=== PATIENT | male | born 1965 | race Caucasian/White ===

== ENCOUNTER → 2016-06-18 | Outpatient (CLI) | payer MEDICARE, MEDICAID ==
[~2016-06-18] MED LIST: ATARAX OR; FOLI1TAB OR; MELO7.5S PO; MELO7.5T6 PO; MELOPOW PO; METH2.5T OR; NORTRIPTYLINE HCL OR; PRED5TAB OR; SULF50TA OR; ULTR200T OR; VICO5TAB OR
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
== END ==
LOC: M PAIN 14:00
PROVIDERS: ATTEND Nurse Practitioner Family
DX: M12.9 Arthropathy, unspecified (principal); Z79.891 Long term (current) use of opiate analgesic; Z79.899 Other long term (current) drug therapy; Z91.018 Allergy to other foods; Z91.040 Latex allergy status; Z88.0 Allergy status to penicillin

== ENCOUNTER → 2016-09-17 | Outpatient (CLI) | payer MEDICARE, MEDICAID ==
--- NOTE | 2016-09-19 01:28 | ECWPNPC ---
PATIENT NAME: CRISTAL HAZEL : 1965 GENDER: MALE VISIT DATE: 09/17/2016 DISCHARGE DATE: 09/17/16 1515 VISIT LOCKED DATE TIME: PHYSICIAN: FRANCISCO J KLINE RESOURCE: FRANCISCO J KLINE REASON FOR APPOINTMENT 1. FOLLOWUP-ARTHRITIS HISTORY OF PRESENT ILLNESS HISTORY OF PRESENT ILLNESS: HERE FOR F/U AND MANAGEMENT OF CHRONIC GENERALIZED JOINT PAIN W HX OF RHEUMATOID ARTHRITIS.PAIN MEDICATION HELPFUL AT REDUCING PAIN AND KEEPING HIM COMFORTABLE.RATING PAIN VAS 6/10.PAIN AGGREVATED BY COLD AND RAIN.USING HYDROCODONE 10/325 Q 4-6 H PRN PAIN WHICH IS HELPFUL.DENIES SIDE EFFECTS WITH MEDICATION. PAIN THE PATIENT DESCRIBES THE PAIN... THE PATIENT DESCRIBES THE PAIN... THE PATIENT DESCRIBES THE PAIN... THE PATIENT DESCRIBES THE PAIN... FALL RISK SCREENING: SCREENING :NO FALLS IN THE PAST YEAR CURRENT MEDICATIONS TAKING FOLIC ACID 1 MG TABLET 1 TABLET P.O. ONCE A DAY (DR. CONTI) TAKING METHOTREXATE 2.5 MG TABLET 9 TABLETS ORALLY EVERY SATURDAY MORNING (DR. CONTI) TAKING PREDNISONE 5 MG TABLET 1 TABLET WITH FOOD OR MILK P.O. ONCE A DAY (DR. CONTI) TAKING MELOXICAM 7.5 MG TABLET 1 TABLET ORALLY ONCE A DAY TAKING HYDROXYCHLOROQUINE SULFATE 200 MG TABLET 1 TABLET WITH FOOD OR MILK ORALLY TWICE DAILY TAKING TOPAMAX 50 MG TABLET 1 TABLET ORALLY ONCE DAILY TAKING CLARITIN 10 MG TABLET 1 TABLET ORALLY ONCE A DAY TAKING OMEPRAZOLE 40 MG CAPSULE DELAYED RELEASE 1 CAPSULE ORALLY ONCE A DAY TAKING HYDROCODONE-ACETAMINOPHEN 10-325 MG TABLET 1 ORALLY Q4H PRN PAIN MDD5 MEDICATION LIST REVIEWED AND RECONCILED WITH THE PATIENT PAST MEDICAL HISTORY RHEUMATOID ARTHRITIS - FOLLOWED BY [facility] RHEUMATOLOGY CHRONIC HAND AND WRIST PAIN - FOLLOWED BY [facility] PAIN [facility] GERD ALLERGIES FRUIT: SOB: ALLERGY LATEX GLOVES: HIVES: ALLERGY PENICILLIN (FOR ALLERGIES USE ONLY): HIVES: ALLERGY SOCIAL HISTORY GENERAL: PAIN CLINIC PFS, CLERGY, PUBLIC HEALTH REFERRALS CLERGY REFERRAL NEEDED?NO WAS THE PROVIDER NOTIFIED OF ANY PERTINENT INFO?NO PFS REFERRAL NEEDED?NO PUBLIC HEALTH REFERRAL NEEDED?NO PATIENT: ____. REVIEW OF SYSTEMS CONSTITUTIONAL: ANY CHANGE IN YOUR MEDICAL CONDITION? NO . CHILLS NO . FEVER NO . INFECTION: DO YOU HAVE NEW INFECTIONS? NO . DO YOU HAVE HISTORY OF MRSA? NO . MUSCULOSKELETAL: ANY NEW PATTERNS OF PAIN OR NUMBNESS? NO . GASTROENTEROLOGY: ANY NEW CHANGE IN BOWEL CONTROL? NO . GENITOURINARY: ANY NEW CHANGE IN BLADDER CONTROL? NO . IS THERE A CHANCE YOU COULD BE ? NO . HEMATOLOGY/LYMPH: DO YOU TAKE ANY BLOOD THINNERS? (FOR EXAMPLE- COUMADIN, PLAVIX, AGGRENOX, PLATEL, PRADAXA, OR XARELTO) NO . WHEN WAS YOUR LAST DOSE? DATE: TIME: . NEUROLOGY: HAVE YOU FALLEN IN THE PAST 6 MONTHS? NO . ANY NEW EXTREMITY NUMBNESS OR WEAKNESS? NO . CARDIOLOGY: DO YOU HAVE A PACEMAKER OR DEFIBRILLATOR? NO . RESPIRATORY: HAVE YOU BEEN SICK IN THE PAST WEEK? NO . FEVER NO . FLU LIKE SYMPTOMS? NO . COUGH NO . INTEGUMENTARY: DO YOU HAVE ANY RASHES OR OPEN SORES? NO . ALLERGIC/IMMUNO: ARE YOU ALLERGIC TO SHELLFISH OR IV DYE? NO . ANY NEW ALLERGIES? NO . PSYCHIATRIC: DO YOU HAVE THOUGHTS OF HURTING YOURSELF OR SOMEONE ELSE? NO . ARE YOU ABUSED, NEGLECTED, OR IN AN UNSAFE ENVIRONMENT? NO . ENDOCRINOLOGY: ARE YOU DIABETIC? NO . OTHER: DO YOU NEED ANY PRESCRIPTIONS? YES . IF YES, PLEASE LIST: ____ . ANY NEW PROBLEMS WITH YOUR MEDICATIONS? NO . WHEN DID YOU LAST EAT? ____ . WHEN DID YOU LAST DRINK? ____ . WHAT DID YOU LAST DRINK? ____ . NAME OF PERSON DRIVING YOU HOME? ____ . DO YOU HAVE ANY OTHER QUESTIONS OR CONCERNS NO . REVIEWED BY: PROVIDER: FRANCISCO J BILL . VITAL SIGNS WT 170.0 LBS, HT 5'6", BMI 27.44 INDEX, BP 141/74 MM HG, HR 62 /MIN, RR 18 /MIN, TEMP 96.8 F, OXYGEN SAT % 96, SAFE IN ENV? (Y/N) YES, NA INITIALS AW 1434, REVIEWED BY: KG. EXAMINATION GENERAL EXAMINATION: LUNGS:LUNG SOUNDS ARE CLEAR. HEART:HEART RATE REGULAR. MUSCULOSKELETAL:*, MUSCLE STRENGTH TESTING 5/5 BILATERAL, PALPATION: NEGATIVE FOR PAIN OVER L/S SPINE. NEGATIVE FOR PAIN OVER L/S PARSPINALS. ASSESSMENTS ARTHROPATHY - M12.9 (PRIMARY) CHRONIC PRESCRIPTION OPIATE USE - Z79.891 TREATMENT ARTHROPATHY REFILL HYDROCODONE-ACETAMINOPHEN TABLET, 10-325 MG, 1, ORALLY, Q4H PRN PAIN MDD5, 30 DAY(S), 150, REFILLS 0 NOTES: I[employer] REGISTRY REVIEWED AND DEMNOSTRATES COMPLLIANCE. BRINGS IN MEDICATIONS WHICH IS APPROPRIATE FOR WHAT WAS DISPENSED. RECENT URINE TOXICOLOGY REVIEWED. NO UNAUTHORIZED MEDICATIONS. NO ILLICIT SUBSTANCES AND PRESCRIBED MEDICATIONS WERE PRESENT. , RISKS AND BENEFITS OF NARCOTIC/OPIOD MEDICATIONS WERE REVIEWED WITH PATIENT - THIS INCLUDES BUT IS NOT LIMITED TO RISK OF DEPENDANCE/DEVELOPMENT OF ADDICTION, MOOD DISTURBANCE AND DEPRESSION, OSTEOPOROSIS, HORMONAL AND LABIDAL CHANGES, RESPIRATORY DEPRESSION AND . PATIENT IS ADVISED NOT TO DRIVE WHILE ON THESE MEDICATIONS.URINE TOX TODAY. PROCEDURE CODES G8783 BP SCR PRFRM RCMDD DEFIND SCR INTVL G8730 PAIN ASSESS POS TOOL F/U PLAN DOC 3016F PT SCRND UNHLTHY OH USE 1123F ACP DISCUSS/DSCN MKR DOCD 1036F TOBACCO NON-USER G8427 DOC MEDS VERIFIED W/PT OR RE G8420 BMI<30 AND >=22 CALC & DOCU 3288F FALL RISK ASSESSMENT DOCD DISPOSITION & COMMUNICATION FOLLOW UP 2 MONTHS ELECTRONICALLY SIGNED BY FLY WAN ON 09/17/2016 AT 03:21 PM EDT DISCLAIMER : THIS IS A VISIT SUMMARY EXTRACTED FROM THE [employer] CHART. IT IS NOT A COPY OF THE [employer] PROGRESS NOTE. MTDD
== END ==
LOC: M PAIN 14:20
PROVIDERS: ATTEND Nurse Practitioner Family
DX: Z09 Encounter for follow-up examination after completed treatment for conditions other than malignant neoplasm (principal); G89.29 Other chronic pain; M05.89 Other rheumatoid arthritis with rheumatoid factor of multiple sites; G43.009 Migraine without aura, not intractable, without status migrainosus; J30.89 Other allergic rhinitis; Z91.018 Allergy to other foods; Z91.040 Latex allergy status; Z88.0 Allergy status to penicillin; Z79.52 Long term (current) use of systemic steroids; Z79.891 Long term (current) use of opiate analgesic; Z79.899 Other long term (current) drug therapy

== ENCOUNTER → 2016-10-10 | Outpatient (CLI) | payer OTHER, MEDICAID | LOC: M LAB 12:38 | PROVIDERS: ATTEND Physician Assistant Medical | DX: G43.009 Migraine without aura, not intractable, without status migrainosus (principal); Z79.899 Other long term (current) drug therapy ==

== ENCOUNTER → 2016-11-19 | Outpatient (CLI) | payer MEDICAID, OTHER, MEDICARE ==
[~2016-11-19] MED LIST changes: -MELO7.5T6 PO; +MELO7.5T7 PO
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
== END ==
LOC: M PAIN 14:00
PROVIDERS: ATTEND Nurse Practitioner Family
DX: M12.9 Arthropathy, unspecified (principal); Z79.891 Long term (current) use of opiate analgesic; Z79.899 Other long term (current) drug therapy; Z91.018 Allergy to other foods; Z88.0 Allergy status to penicillin; Z91.040 Latex allergy status

== ENCOUNTER 2017-05-11 13:13 | Emergency (ER) | payer OTHER, MEDICAID ==
[~2017-05-11] VITALS: Ht 177.8 cm; Wt 70.5 kg
[2017-05-11 13:13] VITALS: BP 122/75
[2017-05-11] MEDS ORDERED: methylPREDNISolone INJ 125 MG/2 ML VIAL (J2930) IV ONE (15:30)
[2017-05-11] MEDS ORDERED: NS 500 ML IV ONE (15:30)
[2017-05-11] MEDS ORDERED: TRAM50TA2 PO (16:00)
[2017-05-11] MEDS ORDERED: CYCL10TA PO (16:00)
[2017-05-11] MEDS ORDERED: KETOROLAC 30 MG/ML VIAL (J1885) IV ONE (16:15)
== END 2017-05-11 16:06 | disposition home or self-care (01) ==
LOC: M ED 13:13
DX: S39.012A Strain of muscle, fascia and tendon of lower back, initial encounter (principal); X50.1XXA Overexertion from prolonged static or awkward postures, initial encounter; Y92.9 Unspecified place or not applicable; Y93.9 Activity, unspecified; Y99.9 Unspecified external cause status; M06.9 Rheumatoid arthritis, unspecified; Z87.891 Personal history of nicotine dependence; Z79.899 Other long term (current) drug therapy; Z88.0 Allergy status to penicillin; Z91.040 Latex allergy status

== ENCOUNTER → 2017-07-10 | Outpatient (CLI) | payer MEDICARE | LOC: M OUTALCOH 11:56 | DX: Z13.9 Encounter for screening, unspecified (principal); F10.20 Alcohol dependence, uncomplicated | CPT/HCPCS: H0001 ==

== ENCOUNTER 2017-07-22 14:01 | Outpatient (RCR) | payer MEDICARE | END 2017-07-31 | LOC: M OUTALCOH 14:01 | DX: F10.20 Alcohol dependence, uncomplicated (principal) | CPT/HCPCS: 90834 ==

== ENCOUNTER 2017-09-10 16:00 | Outpatient (RCR) | payer MEDICARE | END 2017-09-30 | LOC: M OUTALCOH 09-17 16:00 | DX: F10.20 Alcohol dependence, uncomplicated (principal) | CPT/HCPCS: 90834 ==

== ENCOUNTER 2017-10-03 16:00 | Outpatient (RCR) | payer MEDICARE | END 2017-10-31 | LOC: M OUTALCOH 10-10 16:00 | DX: F10.20 Alcohol dependence, uncomplicated (principal) | CPT/HCPCS: 90834 ==

== ENCOUNTER → 2018-08-26 | Outpatient (CLI) | payer OTHER, MEDICARE ==
[~2018-08-26] MED LIST changes: +CYCL10TA PO; +HYDR-3716 PO; +METH2.5T48 PO; +TOPI50TA9 PO; +TRAM50TA2 PO
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
== END ==
LOC: M PAIN 13:30
PROVIDERS: ATTEND Nurse Practitioner Family
DX: M05.89 Other rheumatoid arthritis with rheumatoid factor of multiple sites (principal); K21.9 Gastro-esophageal reflux disease without esophagitis; F41.9 Anxiety disorder, unspecified; F17.220 Nicotine dependence, chewing tobacco, uncomplicated; Z79.1 Long term (current) use of non-steroidal anti-inflammatories (NSAID); Z79.899 Other long term (current) drug therapy; Z88.8 Allergy status to other drugs, medicaments and biological substances; Z91.040 Latex allergy status; Z91.018 Allergy to other foods

== ENCOUNTER 2018-09-25 21:45 | Emergency (ER) | payer MEDICAID, MEDICARE, OTHER ==
[~2018-09-25] VITALS: Ht 175.3 cm; Wt 70.9 kg
[~2018-09-25 21:45] MED LIST changes: -HYDR-3716 PO; -METH2.5T48 PO; -TOPI50TA9 PO
[2018-09-25] MEDS ORDERED: NS 1,000 ML IV SCH (22:05)
[2018-09-25] MEDS ORDERED: METH2.5T48 PO (22:13)
[2018-09-25] MEDS ORDERED: TOPI50TA9 PO (22:13)
[2018-09-25] MEDS ORDERED: HYDR-3716 PO (22:13)
[2018-09-25 22:16] LABS: BASO # 0.1 10^3/uL (0.0-0.2); BASO % 0.6 % (0.0-1.0); EOS % 0.2 % (0.0-3.0); HEMATOCRIT 42.7 % (42.0-52.0); HEMOGLOBIN 14.4 g/dl (13.5-17.5); LYMPH # 1.3 10^3/uL (1.5-4.5); LYMPH % 14.1 % (24.0-44.0); MEAN CORPUSCULAR HEMOGLOBIN 32.8 pg (27.0-33.0); MEAN CORPUSCULAR HGB CONC 33.7 g/dl (32.0-36.5); MEAN CORPUSCULAR VOLUME 97.3 fl (80.0-96.0); MONO # 0.5 10^3/uL (0.0-0.8); MONO % 5.4 % (0.0-5.0); NEUTROPHILS # 7.2 10^3/uL (1.8-7.7); NEUTROPHILS % 79.4 % (36.0-66.0); PLATELET COUNT, AUTOMATED 238 10^3/uL (150-450); RED BLOOD COUNT 4.39 10^6/uL (4.30-6.10)
[2018-09-25 22:46] LABS: ACETAMINOPHEN LEVEL < 2.0 UG/ML (10.0-30.0); ALBUMIN 3.4 GM/DL (3.2-5.2); ALT/SGPT 14 U/L (12-78); BILIRUBIN,DIRECT < 0.1 MG/DL (0.0-0.2); BILIRUBIN,TOTAL 0.3 MG/DL (0.2-1.0); BLOOD UREA NITROGEN 9 MG/DL (7-18); CALCIUM LEVEL 7.5 MG/DL (8.5-10.1); CARBON DIOXIDE LEVEL 24 MEQ/L (21-32); CHLORIDE LEVEL 113 MEQ/L (98-107); CPK CREATINE PHOSPHOKINASE 101 U/L (39-308); CREATININE FOR GFR 0.98 MG/DL (0.70-1.30); ETHYL ALCOHOL (ETHANOL) 0.249 % (0.000-0.010); GLOMERULAR FILTRATION RATE > 60.0 (>56); GLUCOSE, FASTING 75 MG/DL (70-100); POTASSIUM SERUM 3.2 MEQ/L (3.5-5.1); SALICYLATE LEVEL < 1.7 MG/DL (5.0-30.0); SODIUM LEVEL 145 MEQ/L (136-145); TOTAL PROTEIN 6.1 GM/DL (6.4-8.2)
[2018-09-25 23:32] VITALS: BP 120/54
--- NOTE | 2018-09-26 09:01 | REP ---
CHEST, SINGLE VIEW: There is no evidence of acute infiltrate. No pleural effusion is seen. The heart is normal in size. The mediastinal silhouette is unremarkable. The visualized osseous structures are intact. IMPRESSION: No acute pulmonary disease. Electronically Signed by Sven Vaz MD 09/26/2018 12:43 P
--- NOTE | 2018-09-26 11:00 | REP ---
Head CT without contrast: History: Drug overdose. Repeat dictation. Preliminary report is provided at the time of examination by virtual radiology. Comparison study: August 20, 2013. CT findings: Bone window settings demonstrate an intact bony calvarium. There is no evidence of skull fracture or incidental bony calvarial lesion. The visualized paranasal sinuses appear clear. No intraorbital abnormality is seen. On soft tissue window setting images; the lateral, third, and fourth ventricles are normal in size and position. Vaz-white differentiation pattern is normal above and below the tentorium. There are is no evidence of intracranial hemorrhage. No mass, edema, infarction, or midline shift is seen. No extra-axial fluid collection is appreciated. Impression: Negative noncontrast head CT. Electronically Signed by Cirilo Jacob MD 09/26/2018 10:52 A
--- NOTE | 2018-09-26 19:46 | ECGEPIP ---
Stationary ECG Study [facility] - ED Test Date: 2018-09-25 Pat Name: CRISTAL HAZEL Department: Room: - Gender: M Administrative Assistant Receptionist: : 1965 Requested By: OPRSHA BILL Order Number: [id number] Reading MD: Princess Ramey Measurements Intervals [place] Rate: 65 P: 23 GA: 140 QRS: 52 QRSD: 97 T: 30 QT: 426 QTc: 443 Interpretive Statements SINUS RHYTHM DECREASED RATE 03/11/12 Electronically Signed On 09-26-2018 19:45:58 EDT by Princess Ramey
== END 2018-09-25 23:34 | disposition home or self-care (01) ==
LOC: M ED 21:45
DX: F11.129 Opioid abuse with intoxication, unspecified (principal); F10.120 Alcohol abuse with intoxication, uncomplicated; G40.509 Epileptic seizures related to external causes, not intractable, without status epilepticus; F17.200 Nicotine dependence, unspecified, uncomplicated; Z88.0 Allergy status to penicillin; Z91.040 Latex allergy status; Z79.899 Other long term (current) drug therapy; Z79.52 Long term (current) use of systemic steroids; Z79.891 Long term (current) use of opiate analgesic
CPT/HCPCS: 70450; 71045; 80048; 80076; 82550; 84443; 85025; 93005; 93041; 94760; 96360; 99285; G0480

== ENCOUNTER → 2018-12-29 | Outpatient (CLI) | payer MEDICAID, OTHER ==
[~2018-12-29] MED LIST changes: +HYDR-3716 PO; +METH2.5T48 PO; +TOPI50TA9 PO
[2018-12-29 13:18] LABS: APPEARANCE, URINE CLEAR (CLEAR); BACTERIA, URINE AUTO NEGATIVE (NEGATIVE); BILIRUBIN, URINE AUTO NEGATIVE (NEGATIVE); BLOOD, URINE BLOOD NEGATIVE (NEGATIVE); COLOR, URINE YELLOW (YELLOW); GLUCOSE, URINE (UA) AUTO NEGATIVE (NEGATIVE); KETONE, URINE AUTO NEGATIVE (NEGATIVE); LEUKOCYTE ESTERASE, URINE AUTO NEGATIVE (NEGATIVE); MUCUS, URINE SMALL (NEGATIVE); NITRITE, URINE AUTO NEGATIVE (NEGATIVE); PROTEIN, URINE AUTO NEGATIVE (NEGATIVE); RBC, URINE AUTO 2 /HPF (0-3); SPECIFIC GRAVITY URINE AUTO 1.016 (1.002-1.035); SQUAMOUS EPITHELIAL CELL UR AU 0 /HPF (0-6); UROBILINOGEN, URINE AUTO 0.2 mg/dL (0.0-2.0); WBC, URINE AUTO 1 /HPF (0-3)
[2018-12-29 13:20] LABS: BASO # 0.1 10^3/uL (0.0-0.2); EOS # 0.2 10^3/uL (0.0-0.50); EOS % 2.9 % (0.0-3.0); HEMATOCRIT 43.1 % (42.0-52.0); HEMOGLOBIN 14.5 g/dl (13.5-17.5); LYMPH # 1.8 10^3/uL (1.5-4.5); LYMPH % 26.5 % (24.0-44.0); MEAN CORPUSCULAR HEMOGLOBIN 33.2 pg (27.0-33.0); MEAN CORPUSCULAR HGB CONC 33.6 g/dl (32.0-36.5); MEAN CORPUSCULAR VOLUME 98.6 fl (80.0-96.0); MONO # 0.8 10^3/uL (0.0-0.8); MONO % 12.2 % (0.0-5.0); NEUTROPHILS # 3.9 10^3/uL (1.8-7.7); PLATELET COUNT, AUTOMATED 268 10^3/uL (150-450); RED BLOOD COUNT 4.37 10^6/uL (4.30-6.10); WHITE BLOOD COUNT 6.8 10^3/uL (4.0-10.0)
[2018-12-29 13:26] LABS: HEMOGLOBIN A1c 4.5 %
[2018-12-29 13:40] LABS: ALBUMIN 3.6 GM/DL (3.2-5.2); ALT/SGPT 19 U/L (12-78); BILIRUBIN,TOTAL 0.4 MG/DL (0.2-1.0); BLOOD UREA NITROGEN 10 MG/DL (7-18); CALCIUM LEVEL 9.1 MG/DL (8.5-10.1); CARBON DIOXIDE LEVEL 29 MEQ/L (21-32); CHLORIDE LEVEL 110 MEQ/L (98-107); CHOLESTEROL LEVEL 169 MG/DL (<200); CHOLESTEROL RISK RATIO 2.485 (<5); GLOMERULAR FILTRATION RATE > 60.0 (>56); GLUCOSE, FASTING 75 MG/DL (70-100); HDL CHOLESTEROL 68 MG/DL (>40); LDL CHOLESTEROL 84 MG/DL (<100); NON-HDL-C 101 MG/DL; POTASSIUM SERUM 3.8 MEQ/L (3.5-5.1); SODIUM LEVEL 145 MEQ/L (136-145); TOTAL PROTEIN 6.2 GM/DL (6.4-8.2); TRIGLYCERIDES LEVEL 85 MG/DL (<150)
[2018-12-29 13:41] LABS: TOTAL 25(OH) VITAMIN D 37.3 NG/ML (30.0-100.0)
== END ==
LOC: M LAB 12:19
PROVIDERS: ATTEND Physician Assistant
DX: M05.9 Rheumatoid arthritis with rheumatoid factor, unspecified (principal); Z00.00 Encounter for general adult medical examination without abnormal findings; Z79.899 Other long term (current) drug therapy

== ENCOUNTER 2019-01-20 00:21 | Emergency (ER) | payer OTHER ==
[2019-01-20 00:22] VITALS: BP 118/73
[2019-01-20] MEDS ORDERED: BENA25CA4 PO (01:23)
[2019-01-20] MEDS ORDERED: TRIA1OI80 TOP (01:23)
[2019-01-20] MEDS ORDERED: diphenhydrAMINE 50 MG CAP PO ONE (01:30)
== END 2019-01-20 01:32 | disposition home or self-care (01) ==
LOC: M ED 00:21
DX: L23.9 Allergic contact dermatitis, unspecified cause (principal); R56.9 Unspecified convulsions; Z87.891 Personal history of nicotine dependence; Z88.0 Allergy status to penicillin; Z91.018 Allergy to other foods; Z91.040 Latex allergy status; Z79.899 Other long term (current) drug therapy; Z79.52 Long term (current) use of systemic steroids

== ENCOUNTER 2019-04-13 02:25 | Emergency (ER) | payer OTHER ==
[~2019-04-13] VITALS: Ht 177.8 cm; Wt 72.4 kg
[~2019-04-13 02:25] MED LIST changes: +BENA25CA4 PO; +TRIA1OI80 TOP
[2019-04-13] MEDS ORDERED: MORPHINE 4 MG/ML 1ML VIAL/SYRINGE (J2270) IV ONE ×2 (02:45→03:45)
[2019-04-13] MEDS ORDERED: TETANUS/DIPHTHERIA TOX ADSORB ADULT 0.5ML SYR/VIAL (90714) IM ONE (02:45)
[2019-04-13] MEDS ORDERED: NS 1,000 ML IV ONE (02:45)
[2019-04-13] MEDS ORDERED: LIDOCAINE W/EPINEPHRINE 1% 20ML VIAL SC ONE (03:30)
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
[2019-04-13 04:15] VITALS: BP 109/94
== END 2019-04-13 04:34 | disposition home or self-care (01) ==
LOC: M ED 02:25
DX: S01.81XA Laceration without foreign body of other part of head, initial encounter (principal); S00.83XA Contusion of other part of head, initial encounter; Y04.8XXA Assault by other bodily force, initial encounter; Y92.410 Unspecified street and highway as the place of occurrence of the external cause; Y93.9 Activity, unspecified; Y99.9 Unspecified external cause status; M06.9 Rheumatoid arthritis, unspecified; Z79.899 Other long term (current) drug therapy; Z88.0 Allergy status to penicillin; Z91.040 Latex allergy status; Z91.018 Allergy to other foods
CPT/HCPCS: 12011; 70450; 70486; 96361; 96374; 96376; 99284; J2270

== ENCOUNTER → 2019-08-11 | Outpatient (REF) | payer OTHER ==
[2019-08-11 17:24] LABS: BASO # 0.1 10^3/uL (0.0-0.2); BASO % 1.1 % (0.0-1.0); EOS # 0.1 10^3/uL (0.0-0.5); EOS % 1.5 % (0.0-3.0); HEMATOCRIT 46.1 % (42.0-52.0); HEMOGLOBIN 15.2 g/dl (13.5-17.5); LYMPH # 1.1 10^3/uL (1.5-5.0); LYMPH % 16.4 % (24.0-44.0); MEAN CORPUSCULAR HEMOGLOBIN 32.2 pg (27.0-33.0); MEAN CORPUSCULAR VOLUME 97.7 fl (80.0-96.0); MONO # 0.7 10^3/uL (0.0-0.8); MONO % 10.6 % (0.0-5.0); NEUTROPHILS # 4.6 10^3/uL (1.5-8.5); NEUTROPHILS % 69.8 % (36.0-66.0); PLATELET COUNT, AUTOMATED 282 10^3/uL (150-450); RED BLOOD COUNT 4.72 10^6/uL (4.30-6.10); WHITE BLOOD COUNT 6.5 10^3/uL (4.0-10.0)
[2019-08-11 17:49] LABS: ERYTHROCYTE SEDIMENTATION RATE 1 mm/hr (0-20)
[2019-08-11 18:16] LABS: ALBUMIN 4.1 GM/DL (3.2-5.2); ALT/SGPT 20 U/L (12-78); BILIRUBIN,TOTAL 0.6 MG/DL (0.2-1.0); BLOOD UREA NITROGEN 10 MG/DL (7-18); C REACTIVE PROTEIN QUANTITATIV < 0.30 MG/DL (0.00-0.30); CALCIUM LEVEL 9.6 MG/DL (8.5-10.1); CARBON DIOXIDE LEVEL 30 MEQ/L (21-32); CHLORIDE LEVEL 105 MEQ/L (98-107); CREATININE FOR GFR 1.01 MG/DL (0.70-1.30); GLOMERULAR FILTRATION RATE > 60.0 (>56); GLUCOSE, FASTING 89 MG/DL (70-100); POTASSIUM SERUM 4.2 MEQ/L (3.5-5.1); RHEUMATOID FACTOR QUANT 13.8 IU/ML (<15.0); SODIUM LEVEL 142 MEQ/L (136-145)
[2019-08-12 11:38] LABS: HEPATITIS B SURFACE ANTIGEN NEGATIVE (NEGATIVE)
[2019-08-12 12:06] LABS: HEPATITIS C VIRUS ABY INDEX 0.3 INDEX (<0.8)
== END ==
LOC: M SFHCRHEU 15:06
PROVIDERS: ATTEND Internal Medicine
DX: M06.9 Rheumatoid arthritis, unspecified (principal)

== ENCOUNTER → 2019-11-25 | Outpatient (CLI) | payer MEDICARE, OTHER ==
[~2019-11-25] MED LIST changes: +CYCL-707 PO; -CYCL10TA PO
[2019-11-25 14:15] LABS: BASO # 0.1 10^3/uL (0.0-0.2); BASO % 0.5 % (0.0-1.0); EOS # 0.2 10^3/uL (0.0-0.5); EOS % 1.7 % (0.0-3.0); HEMATOCRIT 42.6 % (42.0-52.0); HEMOGLOBIN 14.1 g/dl (13.5-17.5); LYMPH # 1.4 10^3/uL (1.5-5.0); LYMPH % 14.9 % (24.0-44.0); MEAN CORPUSCULAR HEMOGLOBIN 32.9 pg (27.0-33.0); MEAN CORPUSCULAR HGB CONC 33.1 g/dl (32.0-36.5); MEAN CORPUSCULAR VOLUME 99.5 fl (80.0-96.0); MONO # 0.6 10^3/uL (0.0-0.8); MONO % 6.4 % (0.0-5.0); NEUTROPHILS # 7.1 10^3/uL (1.5-8.5); NEUTROPHILS % 75.8 % (36.0-66.0); PLATELET COUNT, AUTOMATED 259 10^3/uL (150-450); RED BLOOD COUNT 4.28 10^6/uL (4.30-6.10); WHITE BLOOD COUNT 9.4 10^3/uL (4.0-10.0)
[2019-11-25 14:18] LABS: ALBUMIN 3.3 GM/DL (3.2-5.2); ALT/SGPT 25 U/L (12-78); BILIRUBIN,TOTAL 0.5 MG/DL (0.2-1.0); BLOOD UREA NITROGEN 8 MG/DL (7-18); C REACTIVE PROTEIN QUANTITATIV < 0.30 MG/DL (0.00-0.30); CALCIUM LEVEL 8.7 MG/DL (8.5-10.1); CARBON DIOXIDE LEVEL 26 MEQ/L (21-32); CHLORIDE LEVEL 109 MEQ/L (98-107); CREATININE FOR GFR 1.04 MG/DL (0.70-1.30); GLOMERULAR FILTRATION RATE > 60.0 (>56); GLUCOSE, FASTING 102 MG/DL (70-100); POTASSIUM SERUM 3.7 MEQ/L (3.5-5.1); SODIUM LEVEL 141 MEQ/L (136-145); TOTAL PROTEIN 6.4 GM/DL (6.4-8.2)
[2019-11-25 15:30] LABS: ERYTHROCYTE SEDIMENTATION RATE 1 mm/hr (0-20)
== END ==
LOC: M LAB 12:31
PROVIDERS: ATTEND Internal Medicine
DX: M06.09 Rheumatoid arthritis without rheumatoid factor, multiple sites (principal)

== ENCOUNTER → 2020-03-12 | Outpatient (CLI) | payer MEDICARE ==
[2020-03-12 10:22] LABS: BASO # 0.1 10^3/uL (0.0-0.2); BASO % 0.9 % (0.0-1.0); EOS # 0.1 10^3/uL (0.0-0.5); EOS % 1.9 % (0.0-3.0); HEMATOCRIT 41.9 % (42.0-52.0); LYMPH # 1.4 10^3/uL (1.5-5.0); LYMPH % 23.9 % (24.0-44.0); MEAN CORPUSCULAR HEMOGLOBIN 32.8 pg (27.0-33.0); MEAN CORPUSCULAR HGB CONC 33.4 g/dl (32.0-36.5); MEAN CORPUSCULAR VOLUME 98.1 fl (80.0-96.0); MONO # 0.7 10^3/uL (0.0-0.8); MONO % 11.7 % (0.0-5.0); NEUTROPHILS # 3.5 10^3/uL (1.5-8.5); NEUTROPHILS % 61.3 % (36.0-66.0); PLATELET COUNT, AUTOMATED 248 10^3/uL (150-450); RED BLOOD COUNT 4.27 10^6/uL (4.30-6.10); WHITE BLOOD COUNT 5.7 10^3/uL (4.0-10.0)
[2020-03-12 10:31] LABS: ALBUMIN 3.4 GM/DL (3.2-5.2); ALT/SGPT 22 U/L (12-78); BILIRUBIN,TOTAL 0.8 MG/DL (0.2-1.0); BLOOD UREA NITROGEN 7 MG/DL (7-18); CALCIUM LEVEL 8.8 MG/DL (8.5-10.1); CARBON DIOXIDE LEVEL 27 MEQ/L (21-32); CHLORIDE LEVEL 109 MEQ/L (98-107); CREATININE FOR GFR 1.08 MG/DL (0.70-1.30); GLOMERULAR FILTRATION RATE > 60.0 (>56); GLUCOSE, FASTING 109 MG/DL (70-100); POTASSIUM SERUM 3.9 MEQ/L (3.5-5.1); SODIUM LEVEL 141 MEQ/L (136-145); TOTAL PROTEIN 6.2 GM/DL (6.4-8.2)
[2020-03-12 10:46] LABS: ERYTHROCYTE SEDIMENTATION RATE 1 mm/hr (0-20)
== END ==
LOC: M LAB 09:31
PROVIDERS: ATTEND Internal Medicine
DX: M06.09 Rheumatoid arthritis without rheumatoid factor, multiple sites (principal)

== ENCOUNTER → 2020-08-08 | Outpatient (CLI) | payer MEDICARE ==
[2020-08-08 14:23] LABS: BASO # 0.1 10^3/uL (0.0-0.2); BASO % 0.7 % (0.0-1.0); EOS # 0.1 10^3/uL (0.0-0.5); EOS % 0.9 % (0.0-3.0); HEMATOCRIT 43.9 % (42.0-52.0); HEMOGLOBIN 14.6 g/dl (13.5-17.5); LYMPH # 1.2 10^3/uL (1.5-5.0); LYMPH % 13.5 % (24.0-44.0); MEAN CORPUSCULAR HEMOGLOBIN 32.7 pg (27.0-33.0); MEAN CORPUSCULAR HGB CONC 33.3 g/dl (32.0-36.5); MEAN CORPUSCULAR VOLUME 98.4 fl (80.0-96.0); MONO % 11.4 % (2.0-8.0); NEUTROPHILS # 6.6 10^3/uL (1.5-8.5); NEUTROPHILS % 72.9 % (36.0-66.0); PLATELET COUNT, AUTOMATED 265 10^3/uL (150-450); RED BLOOD COUNT 4.46 10^6/uL (4.30-6.10)
[2020-08-08 14:52] LABS: ALBUMIN 3.9 GM/DL (3.2-5.2); ALT/SGPT 15 U/L (12-78); BILIRUBIN,TOTAL 0.3 MG/DL (0.2-1.0); BLOOD UREA NITROGEN 11 MG/DL (7-18); CALCIUM LEVEL 9.3 MG/DL (8.5-10.1); CARBON DIOXIDE LEVEL 30 MEQ/L (21-32); CHLORIDE LEVEL 108 MEQ/L (98-107); GLOMERULAR FILTRATION RATE > 60.0 (>56); GLUCOSE, FASTING 79 MG/DL (70-100); POTASSIUM SERUM 3.6 MEQ/L (3.5-5.1); SODIUM LEVEL 141 MEQ/L (136-145)
[2020-08-08 19:45] LABS: ERYTHROCYTE SEDIMENTATION RATE 3 mm/hr (0-20)
== END ==
LOC: M LAB 13:39
PROVIDERS: ATTEND Internal Medicine
DX: M06.09 Rheumatoid arthritis without rheumatoid factor, multiple sites (principal)

== ENCOUNTER → 2021-01-09 | Outpatient (CLI) | payer MEDICARE ==
[~2021-01-09] MED LIST changes: +HYDR-3713 PO
[2021-01-09 10:43] LABS: BASO # 0.1 10^3/uL (0.0-0.2); BASO % 0.9 % (0.0-1.0); EOS # 0.2 10^3/uL (0.0-0.5); EOS % 4.2 % (0.0-3.0); HEMATOCRIT 47.5 % (42.0-52.0); HEMOGLOBIN 16.1 g/dl (13.5-17.5); LYMPH # 1.4 10^3/uL (1.5-5.0); LYMPH % 26.9 % (24.0-44.0); MEAN CORPUSCULAR HEMOGLOBIN 31.9 pg (27.0-33.0); MEAN CORPUSCULAR HGB CONC 33.9 g/dl (32.0-36.5); MEAN CORPUSCULAR VOLUME 94.1 fl (80.0-96.0); MONO # 0.7 10^3/uL (0.0-0.8); MONO % 13.6 % (2.0-8.0); NEUTROPHILS # 2.9 10^3/uL (1.5-8.5); PLATELET COUNT, AUTOMATED 277 10^3/uL (150-450); RED BLOOD COUNT 5.05 10^6/uL (4.30-6.10); WHITE BLOOD COUNT 5.3 10^3/uL (4.0-10.0)
[2021-01-09 11:27] LABS: ERYTHROCYTE SEDIMENTATION RATE 3 mm/hr (0-20)
[2021-01-09 11:34] LABS: ALBUMIN 3.5 GM/DL (3.2-5.2); ALT/SGPT 20 U/L (12-78); BILIRUBIN,TOTAL 0.5 MG/DL (0.2-1.0); BLOOD UREA NITROGEN 6 MG/DL (7-18); CARBON DIOXIDE LEVEL 27 MEQ/L (21-32); CHLORIDE LEVEL 105 MEQ/L (98-107); CREATININE FOR GFR 0.99 MG/DL (0.70-1.30); GLOMERULAR FILTRATION RATE > 60.0 (>56); GLUCOSE, FASTING 86 MG/DL (70-100); POTASSIUM SERUM 3.8 MEQ/L (3.5-5.1); SODIUM LEVEL 139 MEQ/L (136-145); TOTAL PROTEIN 6.8 GM/DL (6.4-8.2)
== END ==
LOC: M LAB 10:14
PROVIDERS: ATTEND Internal Medicine Rheumatology
DX: M06.09 Rheumatoid arthritis without rheumatoid factor, multiple sites (principal)

== ENCOUNTER → 2021-04-11 | Outpatient (CLI) | payer MEDICARE, OTHER ==
[~2021-04-11] MED LIST changes: -HYDR-3713 PO
[2021-04-11 17:03] LABS: ALBUMIN 3.7 GM/DL (3.2-5.2); ALT/SGPT 20 U/L (12-78); BILIRUBIN,TOTAL 0.5 MG/DL (0.2-1.0); BLOOD UREA NITROGEN 11 MG/DL (7-18); CALCIUM LEVEL 9.7 MG/DL (8.5-10.1); CARBON DIOXIDE LEVEL 28 MEQ/L (21-32); CHLORIDE LEVEL 110 MEQ/L (98-107); CREATININE FOR GFR 1.05 MG/DL (0.70-1.30); GLOMERULAR FILTRATION RATE > 60.0 (>56); GLUCOSE, FASTING 91 MG/DL (70-100); SODIUM LEVEL 142 MEQ/L (136-145); TOTAL PROTEIN 6.8 GM/DL (6.4-8.2)
[2021-04-11 18:09] LABS: BASO # 0.1 10^3/uL (0.0-0.2); BASO % 0.6 % (0.0-1.0); EOS # 0.1 10^3/uL (0.0-0.5); HEMATOCRIT 43.9 % (42.0-52.0); HEMOGLOBIN 14.9 g/dl (13.5-17.5); LYMPH # 1.4 10^3/uL (1.5-5.0); LYMPH % 18.3 % (24.0-44.0); MEAN CORPUSCULAR HEMOGLOBIN 32.7 pg (27.0-33.0); MEAN CORPUSCULAR HGB CONC 33.9 g/dl (32.0-36.5); MEAN CORPUSCULAR VOLUME 96.3 fl (80.0-96.0); MONO # 0.9 10^3/uL (0.0-0.8); NEUTROPHILS # 5.3 10^3/uL (1.5-8.5); NEUTROPHILS % 68.6 % (36.0-66.0); PLATELET COUNT, AUTOMATED 273 10^3/uL (150-450); RED BLOOD COUNT 4.56 10^6/uL (4.30-6.10); WHITE BLOOD COUNT 7.7 10^3/uL (4.0-10.0)
[2021-04-11 18:39] LABS: ERYTHROCYTE SEDIMENTATION RATE 1 mm/hr (0-20)
== END ==
LOC: M LAB 15:54
PROVIDERS: ATTEND Internal Medicine Rheumatology
DX: M06.09 Rheumatoid arthritis without rheumatoid factor, multiple sites (principal)

== ENCOUNTER 2021-04-19 19:29 | Emergency (ER) | payer MEDICARE ==
[~2021-04-19] VITALS: Ht 175.3 cm; Wt 75.0 kg
--- OUTSIDE RECORDS SUMMARY | 2021-04-19 19:34 | CCD ---
Author Author [facility] Organization [facility] Address Unknown Phone Unavailable Support Name Relationship Address Phone UE Next Of Kin Unknown Unavailable DISABLED Next Of Kin Unknown Unavailable FELTON CHUA Next Of Kin [address] [place] [address] UNEMPLOYED Next Of Kin [id number] GGG, GG G MARVIN CHUA Next Of Kin [address] [place] [address] BOWMAN, MIKAYLA Next Of Kin [address] [place] [address] Mikayla Bowman ECON [address] [place] [address] Unavailable Ayala Vicki ECON [address] [place] [address] [phone] Re-disclosure Warning The records that you are about to access may contain information from federally-assisted alcohol or drug abuse programs. If such information is present, then the following federally mandated warning applies: This information has been disclosed to you from records protected by federal confidentiality rules (42 CFR part 2). The federal rules prohibit you from making any further disclosure of this information unless further disclosure is expressly permitted by the written consent of the person to whom it pertains or as otherwise permitted by 42 CFR part 2. A general authorization for the release of medical or other information is NOT sufficient for this purpose. The Federal rules restrict any use of the information to criminally investigate or prosecute any alcohol or drug abuse patient.The records that you are about to access may contain highly sensitive health information, the redisclosure of which is protected by Article 27-F of the [facility] Public Health law. If you continue you may have access to information: Regarding HIV / AIDS; Provided by facilities licensed or operated by the [facility] Office of Mental Health; or Provided by the [facility] Office for People With Developmental Disabilities. If such information is present, then the following [facility] mandated warning applies: This information has been disclosed to you from confidential records which are protected by state law. State law prohibits you from making any further disclosure of this information without the specific written consent of the person to whom it pertains, or as otherwise permitted by law. Any unauthorized further disclosure in violation of state law may result in a fine or mcc sentence or both. A general authorization for the release of medical or other information is NOT sufficient authorization for further disc losure. Family History Family Member Name Family Member Gender Family Member Status Date o f Status Description Data Source(s) Unknown Male Problem [facility] ([facility]) () Unknown Unknown Problem [facility] ([facility]) Encounters Encounter Providers Location Date Indications Data Source(s ) Unknown [address] [facility] [address] [address] 04/14/2021 12:00:00 AM EST eCW1 ([facility]) Unknown [address] [facility] [address] [address] 01/12/2021 12:00:00 AM EDT eCW1 ([facility]) Outpatient [address] [facility] [address] [address] 01/12/2021 12:00:00 AM EDT eCW1 ([facility]) Unknown [address] [facility] [address] [place] [address] 01/09/2021 12:00:00 AM EDT eCW1 ([facility]) Unknown [address] [facility] [place] [address] 11/17/2020 12:00:00 AM EDT eCW1 ([facility]) Unknown [address] [facility] [address] [address] 09/13/2020 12:00:00 AM EDT eCW1 ([facility]) Unknown [address] [facility] [address] [address] 08/18/2020 12:00:00 AM EDT eCW1 ([facility]) Outpatient [address] [facility] [address] [address] 08/12/2020 12:00:00 AM EST eCW1 ([facility]) [place] [address] [facility] [address] [place] [address] 04/22/2020 12:00:00 AM EST eCW1 ([facility]) [place] [address] [facility] [place] [address] 03/15/2020 12:00:00 AM EDT eCW1 ([facility]) [place] [address] [facility] [place] [address] 03/07/2020 12:00:00 AM EDT eCW1 ([facility]) [place] [address] [facility] [place] [address] 03/02/2020 12:00:00 AM EDT eCW1 ([facility]) Immunizations Vaccine Date Status Description Data Source(s) COVID-19 VACCINE [employer] 02/16/2021 12:00:00 AM EDT completed [facility] Vaccine Series Complete: YESThis Data wa s Submitted to [facility]. COVID-19 VACCINE Pfizer 01/25/2021 12:00:00 AM EDT completed [facility] Vaccine Series Complete: NOThis Data was Submitted to [facility] [employer]. Medications Medication Brand Name Start Date Product Form Dose Route Admi nistrative Instructions Pharmacy Instructions Status Indications Reaction Description Data Source(s) 2.5 mg 01/14/2021 12:00:00 AM EDT tablet 90 TAKE ONE TABLET BY MOUTH ONCE DAILY WITH FOOD OR MILK TAKE ONE TABLET BY MOUTH ONCE DAILY WITH FOOD OR MILK SOLD: 01/16/2021 [facility] meloxicam 7.5 MG Oral Tablet MELOXICAM 01/12/2021 12:00:00 AM EDT tabl et 90 TAKE 1 TABLET BY MOUTH DAILY TAKE 1 TABLET BY MOUTH DAILY SOLD: 01/16/2021 [facility] 1 mg 01/12/2021 12:00:00 AM EDT tablet 90 TAKE ONE TABLET BY MOUTH EVERY DAY TAKE ONE TABLET BY MOUTH EVERY DAY SOLD: 01/16/2021 [facility] 2.5 mg 01/12/2021 12:00:00 AM EDT tablet 72 TAKE 6 TABLETS BY MOUTH EVERY SATURDAY TAKE 6 TABLETS BY MOUTH EVERY SATURDAY SOLD: 01/16/2021 [facility] 4 mg 08/13/2020 12:00:00 AM EST tablets,dose pack 21 TAKE BY MOUTH DAILY DIRECTED FOR 6 DAYS TAKE BY MOUTH DAILY DIRECTED FOR 6 DAYS SOLD: 08/13/2020 [facility] Medrol 4 MG Medrol 4 MG 08/12/2020 12:00:00 AM EST active Medrol 4 MG eCW1 ([facility]) Medrol 4 MG Medrol 4 MG 08/12/2020 12:00:00 AM EST active Medrol 4 MG eCW1 ([facility]) Medrol 4 MG Medrol 4 MG 08/12/2020 12:00:00 AM EST active Medrol 4 MG eCW1 ([facility]) Medrol 4 MG Medrol 4 MG 08/12/2020 12:00:00 AM EST active Medrol 4 MG eCW1 ([facility]) Medrol 4 MG Medrol 4 MG 08/12/2020 12:00:00 AM EST active Medrol 4 MG eCW1 ([facility]) Medrol 4 MG Medrol 4 MG 08/12/2020 12:00:00 AM EST active Medrol 4 MG eCW1 ([facility]) Medrol 4 MG Medrol 4 MG 08/12/2020 12:00:00 AM EST active Medrol 4 MG eCW1 ([facility]) Medrol 4 MG Medrol 4 MG 08/12/2020 12:00:00 AM EST active Medrol 4 MG eCW1 ([facility]) 2.5 mg 07/26/2020 12:00:00 AM EST tablet 72 TAKE 6 TABLETS BY MOUTH EVERY SATURDAY MORNING ( DR. CONTI) TAKE 6 TABLETS BY MOUTH EVERY SATURDAY MO RNING ( DR. CONTI) SOLD: 08/13/2020 [facility] 50 mg 05/17/2020 12:00:00 AM EST tablet 90 TAKE ONE TABLET BY MOUTH EVERY DAY TAKE ONE TABLET BY MOUTH EVERY DAY SOLD: 05/23/2020 [facility] 50 mg 05/17/2020 12:00:00 AM EST tablet 90 TAKE ONE TABLET BY MOUTH EVERY DAY TAKE ONE TABLET BY MOUTH EVERY DAY SOLD: 08/16/2020 [facility] Medrol 4 MG Medrol 4 MG 04/22/2020 12:00:00 AM EST suspended Medrol 4 MG eCW1 ([facility]) Medrol 4 MG Medrol 4 MG 04/22/2020 12:00:00 AM EST suspended Medrol 4 MG eCW1 ([facility]) Medrol 4 MG Medrol 4 MG 04/22/2020 12:00:00 AM EST active Medrol 4 MG eCW1 ([facility]) Medrol 4 MG Medrol 4 MG 04/22/2020 12:00:00 AM EST suspended Medrol 4 MG eCW1 ([facility]) Medrol 4 MG Medrol 4 MG 04/22/2020 12:00:00 AM EST suspended Medrol 4 MG eCW1 ([facility]) 4 mg 04/22/2020 12:00:00 AM EST tablets,dose pack 21 TAKE BY MOUTH DAILY DIRECTED ON PACK TAKE BY MOUTH DAILY DIRECTED ON PACK SOLD: 04/25/2020 [facility] Medrol 4 MG Medrol 4 MG 04/22/2020 12:00:00 AM EST suspended Medrol 4 MG eCW1 ([facility]) Medrol 4 MG Medrol 4 MG 04/22/2020 12:00:00 AM EST suspended Medrol 4 MG eCW1 ([facility]) 1 mg 04/22/2020 12:00:00 AM EST tablet 90 TAKE 1 TABLET BY MOUTH ONCE DAILY TAKE 1 TABLET BY MOUTH ONCE DAILY SOLD: 04/25/2020 [facility] Medrol 4 MG Medrol 4 MG 04/22/2020 12:00:00 AM EST suspended Medrol 4 MG eCW1 ([facility]) Medrol 4 MG Medrol 4 MG 04/22/2020 12:00:00 AM EST suspended Medrol 4 MG eCW1 ([facility]) 5 mg 03/16/2020 12:00:00 AM EDT tablet 90 TAKE ONE TABLET BY MOUTH EVERY DAY WITH FOOD OR MILK TAKE ONE TABLET BY MOUTH EVERY DAY WITH FOOD OR MILK S OLD: 08/16/2020 [facility] 5 mg 03/16/2020 12:00:00 AM EDT tablet 90 TAKE ONE TABLET BY MOUTH EVERY DAY WITH FOOD OR MILK TAKE ONE TABLET BY MOUTH EVERY DAY WITH FOOD OR MILK S OLD: 03/16/2020 [facility] 1 mg 03/16/2020 12:00:00 AM EDT tablet 90 TAKE ONE TABLET BY MOUTH EVERY DAY TAKE ONE TABLET BY MOUTH EVERY DAY SOLD: 03/16/2020 [facility] 2.5 mg 03/16/2020 12:00:00 AM EDT tablet 108 TAKE 9 TABLETS BY MOUTH EVERY SATURDAY MORNING TAKE 9 TABLETS BY MOUTH EVERY SATURDAY MORNING SOLD: 03/16/20 20 [facility] meloxicam 7.5 MG Oral Tablet MELOXICAM 03/16/2020 12:00:00 AM EDT tabl et 90 TAKE ONE TABLET BY MOUTH EVERY DAY TAKE ONE TABLET BY MOUTH EVERY DAY SOLD: 03/16/2020 [facility] Insurance Providers Payer name Policy type / Coverage type Policy ID Covered republican ID Covered republican's relationship to preciado Policy Preciado Plan Information MEDICARE A [id number] Self [id number] A MEDICAID M [id number] Self [id number] HUMANA MEDICARE ADVANTAGE G [id number] Self [id number] HUMANA GOLD [id number] SP [id number] WELLCARE -CLINIC [id number] 18 [id number] MEDICARE PART A [facility] [id number] 18 [id number] MEDICAID -O/P EMERGENCY ROOM [id number] HUMANA GOLD PLUS -O/P [id number] 18 [id number] HUMANA GOLD PLUS -O/P [id number] 18 [id number] HUMANA GOLD PLUS -O/P [id number] 18 [id number] MEDICAID -O/P [id number] 18 [id number] HUMANA GOLD PLUS -CLINIC [id number] 18 [id number] HUMANA GOLD [id number] SP [id number] MEDICAID [id number] SP [id number] MEDICARE [id number] SP [id number] A ANSI-Medicare Part B [id number] ANSI-Medicaid [id number] ANSI-Commercial [id number] ANSI-Medicaid [id number] ANSI-Medicare Part B [id number] ANSI-Commercial [id number] ANSI-Medicare Part B [id number] ANSI-Medicaid [id number] ANSI-Commercial [id number] ANSI-Medicare Part B [id number] ANSI-Commercial [id number] ANSI-Medicaid [id number] MEDICAID -PHYSICIAN [id number] HUMANA GOLD PLUS -PHYSICIAN [id number] 1 [id number] MEDICAID -CLINIC [id number] Medicare Part A [place] Medicare Primary [id number] Self 0 [id number] [place] [id number] 18 [id number] [place] [id number] 18 [id number] MEDICARE [id number] SP [id number] A [facility] [facility] [id number] 18 [id number] CIGNA HEALTHCARE -PHYSICIAN [id number] 18 [id number] CIGNA HE[employer]CARE -O [id number] 18 [id number] CIGNA HEALTHCARE -O/P [id number] 18 [id number] CIGNA HEALTHCARE -O/P [id number] 18 [id number] MEDICARE PART A -O/P [id number] 18 [id number] HUMANA GOLD [id number] SP [id number] [employer] Medicare Hmo Health Maintenance Organization ([facility]) [id number] Self [id number] Medicare Part A [place] Medicare Primary [id number] Self [id number] HUMANA MEDICARE HMO HM [id number] 18 [id number] MEDICARE PART A [facility] [id number] 18 [id number] HUMANA CHOICE CARE CLAIMS -O/P [id number] 18 [id number] MEDICARE C [id number] S [id number] A HUMANA GOLD [id number] SP [id number] MEDICAID M [id number] S [id number] [place] [id number] Self Medicare Natl Gov't Servi Medicare Primary [id number] Self MEDICARE PART A-CLINIC [id number] 18 [id number] MEDICARE [id number] SP [id number] A MEDICARE INPATIENT M [id number] S [id number] MEDICARE [id number] SP [id number] SELF PAY UNAVAILABLE SP UNAVAILA BLE OTHER NO FAULT UNAVAILABLE DAVID VAILABLE MEDICARE OUTPATIENT M [id number] S [id number] MEDICARE PART B-PHYSICIAN [id number] 18 [id number] MEDICAID - CLINIC [id number] AP [id number] P UNAVAILABLE UNAVAILA BLE [facility] [id number] SP [id number] UNAVAILABLE UNAVAILA BLE HUMANA PPO [id number] SP [id number] WELLCARE [id number] SP [id number] Problems, Conditions, and Diagnoses Code Display Name Description Problem Type Effective Dates Data Source(s) G56.01 [id number] Carpal tunnel syndrome of right wrist Problem 01/12/2021 12:00:00 AM EDT eCW1 ([facility]) M89.49 [id number] Primary osteoarthritis involving multiple joints Problem 01/12/2021 12:00:00 AM EDT eCW1 ([facility]) Surgeries/Procedures No Information Results ID Date Data Source [id number] 01/09/2021 10:25:00 AM EDT MED[facility] ([facility]) Name Value Range Interpretation Code Description Data Kelly rce(s) Supporting Document(s) Blood Urea Nitrogen 6 mg/dL 7-18 Below low normal MED[facility] ([facility]) Glucose, Fasting 86 mg/dL 70-100 Normal (applies to non-numeric results) [facility] ([facility]) Creatinine For GFR 0.99 mg/dL 0.70-1.30 Normal (applies to non -numeric results) [facility] ([facility]) Glomerular Filtration Rate Laboratory test result Normal (applies to non- numeric results) [facility]) <content>Units are mL/min/1.73 m2</content>
<content></content>
<content>Chronic Kidney Disease Staging per NKF:</content>
<content></content>
<content>Stage I & II GFR >=60 Normal to Mildly Decreased</content>
<content>Stage III GFR 30-59 Moderately Decreased</content>
<content>Stage IV GFR 15-29 Severely Decreased</content>
<content>Stage V GFR <15 Very Little GFR Left</content>
<content>ESRD GFR <15 on LUMITE INJECTOR</content>
<content></content> Sodium Level 139 meq/L 136-145 Normal (applies to non-numeric res ults) [facility] ([facility]) Potassium Serum 3.8 meq/L 3.5-5.1 Normal (applies to non-numeric results) [facility] ([facility]) Carbon Dioxide Level 27 meq/L 21-32 Normal (applies to non-num stella results) [facility] ([facility]) Chloride Level 105 meq/L 98-107 Normal (applies to non-numeric r esults) [facility] ([facility]) Anion Gap 7 meq/L 8-[address] [facility] ( [facility]) Ast/Sgot 22 U/L 7-37 Normal (applies to non-numeric resul ts) [facility]) Calcium Level 9.0 mg/dL 8.5-10.1 Normal (applies to non-numeric re sults) [facility] ([facility]) Alt/SGPT 20 U/L 12-78 Normal (applies to non-numeric resul ts) [facility]) Alkaline Phosphatase 61 U/L 45-117 Normal (applies to non-num stella results) [facility] ([facility]) Bilirubin,Total 0.5 mg/dL 0.2-1.0 Normal (applies to non-numeric results) [facility] ([facility]) Total Protein 6.8 GM/DL 6.4-8.2 Normal (applies to non-numeric re sults) [facility] ([facility]) Albumin 3.5 GM/DL 3.2-5.2 Normal (applies to non-numeric resul ts) [facility]) Albumin/Globulin Ratio 1.1 Normal (applies to non-n umeric results) [facility] ([facility]) ID Date Data Source [id number] 01/09/2021 10:25:[address] [facility] ([facility]) Name Value Range Interpretation Code Description Data Kelly rce(s) Supporting Document(s) Erythrocyte sedimentation rate by Westergren method 3 mm/hr 0-20 Normal (applies to non-numeric results) [facility] ([facility]) ID Date Data Source [id number] 01/09/2021 10:25:00 AM EDT [facility]) Name Value Range Interpretation Code Description Data Kelly rce(s) Supporting Document(s) White Blood Count 5.3 10 4.0-10.0 Normal (applies to non-numeri c results) [facility] ([facility]) Red Blood Count 5.05 10 4.30-6.10 Normal (applies to non-numeric results) [facility] ([facility]) Hematocrit 47.5 % 42.0-52.0 Normal (applies to non-numeric resul ts) [facility]) Hemoglobin 16.1 g/dL 13.5-17.5 Normal (applies to non-numeric resul ts) [facility]) Mean Corpuscular Volume 94.1 fl 80.0-96.0 Normal ( applies to non-numeric results) [facility] ([facility]) Mean Corpuscular Hemoglobin 31.9 pg 27.0-33.0 Norm al (applies to non-numeric results) [facility] ([facility]) Mean Corpuscular HGB Conc 33.9 g/dL 32.0-36.5 Normal (applies to non-numeric results) [facility] ([facility]) Red Cell Distribution Width 12.7 % 11.5-14.5 Norm al (applies to non-numeric results) [facility] ([facility]) Platelet Count, Automated 277 10 150-450 Normal (applies to non-numeric results) [facility] ([facility]) Lymph % 26.9 % 24.0-44.0 Normal (applies to non-numeric resul ts) [facility]) Neutrophils % 54.0 % 36.0-66.0 Normal (applies to non-numeric re sults) [facility] ([facility]) Eos % 4.2 % 0.0-3.0 Above high normal [facility] ([facility]) [place] % 13.6 % 2.0-8.0 Above high [facility] Immature Granulocyte % 0.4 % 0-3.0 Normal (applies to non-n umeric results) [facility] ([facility]) Baso % 0.9 % 0.0-1.0 Normal (applies to non-numeric resul ts) [facility] ([facility]) Nucleated Red Blood Cell % 0.0 % 0-0 Normal (applies to n on-numeric results) [facility] ([facility]) Neutrophils # 2.9 10 1.5-8.5 Normal (applies to non-numeric re sults) [facility] ([facility]) Lymph # 1.4 10 1.5-5.0 Below low normal [facility] ( [facility]) [place] # 0.7 10 0.0-0.8 Normal (applies to non-numeric resul ts) [facility] ([facility]) Baso # 0.1 10 0.0-0.2 Normal (applies to non-numeric resul ts) [facility] ([facility]) Eos # 0.2 10 0.0-0.5 Normal (applies to non-numeric resul ts) [facility] ([facility]) ID Date Data Source [id number] 01/09/2021 10:25:00 AM EDT [facility] ([facility]) Name Value Range Interpretation Code Description Data Kelly rce(s) Supporting Document(s) C reactive protein [Mass/volume] in Serum or Plasma by High sensitivity method 0.70 mg/dL 0.00-0.30 Above high normal [facility] ([facility]) Procedure Social History Code Duration Value Status Description Data Source(s ) Smoking 01/12/2021 12:00:00 AM EDT Former Smoker completed Former Smoker eCW1 ([facility]) Smoking 01/12/2021 12:00:00 AM EDT Former Smoker completed Former Smoker eCW1 ([facility]) Smoking 01/12/2021 12:00:00 AM EDT Former Smoker completed Former Smoker eCW1 ([facility]) Smoking 09/13/2020 12:00:00 AM EDT Former Smoker completed Former Smoker eCW1 ([facility]) Smoking 09/13/2020 12:00:00 AM EDT Former Smoker completed Former Smoker eCW1 ([facility]) Smoking 09/13/2020 12:00:00 AM EDT Former Smoker completed Former Smoker eCW1 ([facility]) Smoking 08/12/2020 12:00:00 AM EST Former Smoker completed Former Smoker eCW1 ([facility]) Smoking 08/12/2020 12:00:00 AM EST Former Smoker completed Former Smoker eCW1 ([facility]) Smoking 04/22/2020 12:00:00 AM EST Former Smoker completed Former Smoker eCW1 ([facility]) Vital Signs ID Date Data Source UNK Name Value Range Interpretation Code Description Data Source(s) Body weight 174.8 [lb_av] 174.8 [lb_av] eCW1 ([facility]) Body weight 79.29 kg 79.29 kg W1 ([facility]) Body height 66 [in_i] 66 [in_i] eCW1 ([facility]) Body mass index (BMI) [Ratio] 28.21 kg/m2 28.21 kg/m2 W1 ([facility]) Heart rate 87 /min 87 /min eCW1 ([facility]) Respiratory rate 16 /min 16 /min eCW1 ([facility]) Body temperature 98.5 [degF] 98.5 [degF] eCW1 ( [facility]) Systolic blood pressure 114 mm[Hg] 114 mm[Hg] e CW1 ([facility]) Diastolic blood pressure 72 mm[Hg] 72 mm[Hg] eCW1 ([facility]) Body weight 176.8 [lb_av] 176.8 [lb_av] eCW1 ([facility]) Body height 66 [in_i] 66 [in_i] eCW1 ([facility]) Body mass index (BMI) [Ratio] 28.53 kg/m2 28.53 kg/m2 W1 ([facility]) Heart rate 71 /min 71 /min eCW1 ([facility]) Respiratory rate 16 /min 16 /min eCW1 ([facility]) Body temperature 96.9 [degF] 96.9 [degF] eCW1 ( [facility]) Systolic blood pressure 104 mm[Hg] 104 mm[Hg] e CW1 ([facility]) Diastolic blood pressure 60 mm[Hg] 60 mm[Hg] eCW1 ([facility]) Patient Treatment Plan of Care Planned Activity Planned Date Details Description Data Source (s) Medrol 4 MG 08/12/2020 12:00:00 AM EST e CW1 ([facility]) Medrol 4 MG 08/12/2020 12:00:00 AM EST e CW1 ([facility]) Medrol 4 MG 08/12/2020 12:00:00 AM EST e CW1 ([facility]) Medrol 4 MG 04/22/2020 12:00:00 AM EST e CW1 ([facility])
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
[2021-04-19 20:16] LABS: HEMATOCRIT 43.8 % (42.0-52.0); MEAN CORPUSCULAR HEMOGLOBIN 32.6 pg (27.0-33.0); MEAN CORPUSCULAR HGB CONC 34.2 g/dl (32.0-36.5); MEAN CORPUSCULAR VOLUME 95.2 fl (80.0-96.0); PLATELET COUNT, AUTOMATED 285 10^3/uL (150-450); WHITE BLOOD COUNT 8.2 10^3/uL (4.0-10.0)
[2021-04-19 20:41] LABS: AMPHETAMINES LEVEL URINE NEGATIVE (NEGATIVE); BARBITURATES URINE NEGATIVE (NEGATIVE); BENZODIAZEPINES URINE NEGATIVE (NEGATIVE); CANNABINOIDS URINE NEGATIVE (NEGATIVE); COCAINE METABOLITE URINE NEGATIVE (NEGATIVE); METHADONE URINE NEGATIVE (NEGATIVE); OPIATES URINE NEGATIVE (NEGATIVE); PHENCYCLIDINE URINE NEGATIVE (NEGATIVE)
[2021-04-19 20:52] LABS: ACETAMINOPHEN LEVEL < 2.0 UG/ML (10.0-30.0); ALBUMIN 3.8 GM/DL (3.2-5.2); ALT/SGPT 21 U/L (12-78); BILIRUBIN,DIRECT 0.1 MG/DL (0.0-0.2); BILIRUBIN,TOTAL 0.5 MG/DL (0.2-1.0); BLOOD UREA NITROGEN 6 MG/DL (7-18); CALCIUM LEVEL 9.3 MG/DL (8.5-10.1); CARBON DIOXIDE LEVEL 26 MEQ/L (21-32); CHLORIDE LEVEL 111 MEQ/L (98-107); CREATININE FOR GFR 1.02 MG/DL (0.70-1.30); ETHYL ALCOHOL (ETHANOL) 0.128 % (0.000-0.010); GLOMERULAR FILTRATION RATE > 60.0 (>56); GLUCOSE, FASTING 83 MG/DL (70-100); POTASSIUM SERUM 3.8 MEQ/L (3.5-5.1); SALICYLATE LEVEL < 1.7 MG/DL (5.0-30.0); SODIUM LEVEL 143 MEQ/L (136-145); TOTAL PROTEIN 6.9 GM/DL (6.4-8.2)
[2021-04-20 00:36] VITALS: BP 121/85
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
== END 2021-04-20 00:42 | disposition home or self-care (01) ==
LOC: M ED 19:29
DX: F10.120 Alcohol abuse with intoxication, uncomplicated (principal); K21.9 Gastro-esophageal reflux disease without esophagitis; F41.9 Anxiety disorder, unspecified; M06.9 Rheumatoid arthritis, unspecified; Z88.0 Allergy status to penicillin; Z91.040 Latex allergy status; Z79.899 Other long term (current) drug therapy

== ENCOUNTER → 2021-07-03 | Outpatient (CLI) | payer MEDICARE ==
[~2021-07-03] MED LIST changes: +HYDR-3713 PO
[2021-07-03 18:03] LABS: BASO # 0.1 10^3/uL (0.0-0.2); BASO % 0.9 % (0.0-1.0); EOS # 0.2 10^3/uL (0.0-0.5); HEMATOCRIT 44.5 % (42.0-52.0); HEMOGLOBIN 15.1 g/dl (13.5-17.5); LYMPH # 1.2 10^3/uL (1.5-5.0); LYMPH % 12.8 % (24.0-44.0); MEAN CORPUSCULAR HEMOGLOBIN 32.5 pg (27.0-33.0); MEAN CORPUSCULAR HGB CONC 33.9 g/dl (32.0-36.5); MEAN CORPUSCULAR VOLUME 95.7 fl (80.0-96.0); MONO % 9.8 % (2.0-8.0); NEUTROPHILS # 7.2 10^3/uL (1.5-8.5); NEUTROPHILS % 73.7 % (36.0-66.0); PLATELET COUNT, AUTOMATED 291 10^3/uL (150-450); RED BLOOD COUNT 4.65 10^6/uL (4.30-6.10); WHITE BLOOD COUNT 9.7 10^3/uL (4.0-10.0)
[2021-07-03 18:41] LABS: ALBUMIN 3.7 GM/DL (3.2-5.2); ALT/SGPT 21 U/L (12-78); BILIRUBIN,TOTAL 0.3 MG/DL (0.2-1.0); BLOOD UREA NITROGEN 11 MG/DL (7-18); CALCIUM LEVEL 9.1 MG/DL (8.5-10.1); CARBON DIOXIDE LEVEL 28 MEQ/L (21-32); CHLORIDE LEVEL 111 MEQ/L (98-107); CREATININE FOR GFR 1.16 MG/DL (0.70-1.30); GLOMERULAR FILTRATION RATE > 60.0 (>56); GLUCOSE, FASTING 78 MG/DL (70-100); POTASSIUM SERUM 3.7 MEQ/L (3.5-5.1); SODIUM LEVEL 143 MEQ/L (136-145); TOTAL PROTEIN 7.3 GM/DL (6.4-8.2)
[2021-07-03 18:44] LABS: ERYTHROCYTE SEDIMENTATION RATE 1 mm/hr (0-20)
== END ==
LOC: M LAB 17:22
PROVIDERS: ATTEND Internal Medicine Rheumatology
DX: M06.09 Rheumatoid arthritis without rheumatoid factor, multiple sites (principal); Z51.81 Encounter for therapeutic drug level monitoring; Z79.899 Other long term (current) drug therapy

== ENCOUNTER 2021-07-25 15:18 | Emergency (ER) | payer MEDICARE ==
[~2021-07-25] VITALS: Ht 177.8 cm; Wt 85.0 kg
[~2021-07-25 15:18] MED LIST changes: -HYDR-3713 PO
[2021-07-25] MEDS ORDERED: NORCO, ANEXSIA 5/325MG TABLET (HYDROcodone/ACETAMINOPHEN) PO ONE (19:35)
[2021-07-25 19:58] VITALS: BP 133/87
[2021-07-25] MEDS ORDERED: HYDR-3713 PO (20:02)
== END 2021-07-25 20:13 | disposition home or self-care (01) ==
LOC: M ED 15:18
DX: S82.451A Displaced comminuted fracture of shaft of right fibula, initial encounter for closed fracture (principal); W00.0XXA Fall on same level due to ice and snow, initial encounter; F10.10 Alcohol abuse, uncomplicated; M06.9 Rheumatoid arthritis, unspecified; Z88.0 Allergy status to penicillin; Z91.040 Latex allergy status; Y92.410 Unspecified street and highway as the place of occurrence of the external cause; Y93.9 Activity, unspecified; Y99.9 Unspecified external cause status

== ENCOUNTER → 2021-08-03 | Outpatient (CLI) | payer MEDICARE ==
[~2021-08-03] MED LIST changes: +HYDR-3713 PO
== END ==
LOC: M SOG 08:46
PROVIDERS: ATTEND Orthopaedic Surgery
DX: S82.64XA Nondisplaced fracture of lateral malleolus of right fibula, initial encounter for closed fracture (principal); X58.XXXA Exposure to other specified factors, initial encounter; Y92.9 Unspecified place or not applicable

== ENCOUNTER → 2021-08-17 | Outpatient (CLI) | payer MEDICARE | LOC: M SOG 08:17 | PROVIDERS: ATTEND Orthopaedic Surgery | DX: S82.64XD Nondisplaced fracture of lateral malleolus of right fibula, subsequent encounter for closed fracture with routine healing (principal); W18.30XD Fall on same level, unspecified, subsequent encounter ==

== ENCOUNTER → 2021-09-30 | Outpatient (CLI) | payer MEDICARE ==
[2021-09-30 13:22] LABS: BASO # 0.1 10^3/uL (0.0-0.2); BASO % 1.1 % (0.0-1.0); EOS # 0.1 10^3/uL (0.0-0.5); EOS % 1.6 % (0.0-3.0); HEMOGLOBIN 15.9 g/dl (13.5-17.5); LYMPH # 1.4 10^3/uL (1.5-5.0); LYMPH % 19.2 % (24.0-44.0); MEAN CORPUSCULAR HEMOGLOBIN 31.1 pg (27.0-33.0); MEAN CORPUSCULAR HGB CONC 33.1 g/dl (32.0-36.5); MEAN CORPUSCULAR VOLUME 93.9 fl (80.0-96.0); MONO # 0.6 10^3/uL (0.0-0.8); MONO % 8.5 % (2.0-8.0); NEUTROPHILS # 5.1 10^3/uL (1.5-8.5); NEUTROPHILS % 69.1 % (36.0-66.0); PLATELET COUNT, AUTOMATED 307 10^3/uL (150-450); RED BLOOD COUNT 5.11 10^6/uL (4.30-6.10); WHITE BLOOD COUNT 7.4 10^3/uL (4.0-10.0)
[2021-09-30 14:03] LABS: ERYTHROCYTE SEDIMENTATION RATE 2 mm/hr (0-20)
[2021-09-30 14:04] LABS: ALBUMIN 3.6 GM/DL (3.2-5.2); ALT/SGPT 17 U/L (12-78); BILIRUBIN,TOTAL 0.4 MG/DL (0.2-1.0); BLOOD UREA NITROGEN 13 MG/DL (7-18); CALCIUM LEVEL 9.4 MG/DL (8.5-10.1); CARBON DIOXIDE LEVEL 28 MEQ/L (21-32); CHLORIDE LEVEL 110 MEQ/L (98-107); GLOMERULAR FILTRATION RATE > 60.0 (>56); GLUCOSE, FASTING 85 MG/DL (70-100); POTASSIUM SERUM 4.6 MEQ/L (3.5-5.1); SODIUM LEVEL 142 MEQ/L (136-145); TOTAL PROTEIN 7.2 GM/DL (6.4-8.2)
== END ==
LOC: M LAB 12:53
PROVIDERS: ATTEND Internal Medicine Rheumatology
DX: M06.09 Rheumatoid arthritis without rheumatoid factor, multiple sites (principal); M89.49 Other hypertrophic osteoarthropathy, multiple sites; G56.01 Carpal tunnel syndrome, right upper limb; Z79.899 Other long term (current) drug therapy

== ENCOUNTER → 2022-01-01 | Outpatient (CLI) | payer MEDICARE ==
[2022-01-01 17:45] LABS: BASO # 0.1 10^3/uL (0.0-0.2); BASO % 0.9 % (0.0-1.0); EOS # 0.1 10^3/uL (0.0-0.5); EOS % 0.8 % (0.0-3.0); HEMATOCRIT 43.5 % (42.0-52.0); HEMOGLOBIN 14.7 g/dl (13.5-17.5); LYMPH # 1.3 10^3/uL (1.5-5.0); LYMPH % 16.6 % (24.0-44.0); MEAN CORPUSCULAR HGB CONC 33.8 g/dl (32.0-36.5); MEAN CORPUSCULAR VOLUME 94.8 fl (80.0-96.0); MONO # 0.7 10^3/uL (0.0-0.8); MONO % 9.3 % (2.0-8.0); NEUTROPHILS # 5.6 10^3/uL (1.5-8.5); PLATELET COUNT, AUTOMATED 298 10^3/uL (150-450); RED BLOOD COUNT 4.59 10^6/uL (4.30-6.10); WHITE BLOOD COUNT 7.8 10^3/uL (4.0-10.0)
[2022-01-01 18:13] LABS: ALBUMIN 3.9 GM/DL (3.2-5.2); ALT/SGPT 18 U/L (12-78); BILIRUBIN,TOTAL 0.7 MG/DL (0.2-1.0); BLOOD UREA NITROGEN 10 MG/DL (7-18); CARBON DIOXIDE LEVEL 23 MEQ/L (21-32); CHLORIDE LEVEL 114 MEQ/L (98-107); CREATININE FOR GFR 1.23 MG/DL (0.70-1.30); GLOMERULAR FILTRATION RATE > 60.0 (>56); GLUCOSE, FASTING 73 MG/DL (70-100); POTASSIUM SERUM 3.6 MEQ/L (3.5-5.1); SODIUM LEVEL 144 MEQ/L (136-145); TOTAL PROTEIN 7.2 GM/DL (6.4-8.2)
[2022-01-01 19:22] LABS: ERYTHROCYTE SEDIMENTATION RATE 4 mm/hr (0-20)
== END ==
LOC: M LAB 17:16
PROVIDERS: ATTEND Internal Medicine Rheumatology
DX: M06.09 Rheumatoid arthritis without rheumatoid factor, multiple sites (principal)

== ENCOUNTER → 2022-06-21 | Outpatient (CLI) | payer MEDICARE ==
[2022-06-21 17:50] LABS: BASO % 0.4 % (0.0-1.0); EOS # 0.2 10^3/uL (0.0-0.5); HEMATOCRIT 41.9 % (42.0-52.0); HEMOGLOBIN 13.9 g/dl (13.5-17.5); LYMPH # 1.4 10^3/uL (1.5-5.0); MEAN CORPUSCULAR HEMOGLOBIN 31.2 pg (27.0-33.0); MEAN CORPUSCULAR HGB CONC 33.2 g/dl (32.0-36.5); MEAN CORPUSCULAR VOLUME 93.9 fl (80.0-96.0); MONO # 0.8 10^3/uL (0.0-0.8); MONO % 10.7 % (2.0-8.0); NEUTROPHILS % 67.6 % (36.0-66.0); PLATELET COUNT, AUTOMATED 273 10^3/uL (150-450); RED BLOOD COUNT 4.46 10^6/uL (4.30-6.10); WHITE BLOOD COUNT 7.3 10^3/uL (4.0-10.0)
[2022-06-21 17:51] LABS: ERYTHROCYTE SEDIMENTATION RATE 30 mm/hr (0-20)
[2022-06-21 18:35] LABS: ALBUMIN 3.1 G/DL (3.2-5.2); ALKALINE PHOSPHATASE 73 U/L (46-116); ALT/SGPT 10 U/L (7.0-40); AST/SGOT 18 U/L (<34); BILIRUBIN,TOTAL 0.5 MG/DL (0.3-1.2); BLOOD UREA NITROGEN 6 MG/DL (9-23); CALCIUM LEVEL 8.6 MG/DL (8.5-10.1); CARBON DIOXIDE LEVEL 29 MMOL/L (20-31); CHLORIDE LEVEL 106 MMOL/L (98-107); CREATININE FOR GFR 0.98 MG/DL (0.70-1.30); GLOMERULAR FILTRATION RATE > 60.0 (>56); GLUCOSE, FASTING 99 MG/DL (60-100); POTASSIUM SERUM 3.9 MMOL/L (3.5-5.1); SODIUM LEVEL 140 MMOL/L (136-145); TOTAL PROTEIN 6.5 G/DL (5.7-8.2)
== END ==
LOC: M LAB 13:13
PROVIDERS: ATTEND Internal Medicine Rheumatology
DX: M06.09 Rheumatoid arthritis without rheumatoid factor, multiple sites (principal); Z79.899 Other long term (current) drug therapy; M89.49 Other hypertrophic osteoarthropathy, multiple sites; G56.01 Carpal tunnel syndrome, right upper limb

== ENCOUNTER → 2022-09-27 | Outpatient (CLI) | payer MEDICARE ==
[~2022-09-27] MED LIST changes: +TOPI-254 PO; -TOPI50TA9 PO
[2022-09-27 14:22] LABS: BASO # 0.1 10^3/uL (0.0-0.2); BASO % 0.6 % (0.0-1.0); EOS # 0.1 10^3/uL (0.0-0.5); EOS % 1.5 % (0.0-3.0); HEMATOCRIT 44.9 % (42.0-52.0); HEMOGLOBIN 15.3 g/dl (13.5-17.5); LYMPH # 1.5 10^3/uL (1.5-5.0); LYMPH % 18.2 % (24.0-44.0); MEAN CORPUSCULAR HEMOGLOBIN 32.1 pg (27.0-33.0); MEAN CORPUSCULAR HGB CONC 34.1 g/dl (32.0-36.5); MEAN CORPUSCULAR VOLUME 94.3 fl (80.0-96.0); MONO # 1.1 10^3/uL (0.0-0.8); MONO % 13.2 % (2.0-8.0); NEUTROPHILS # 5.4 10^3/uL (1.5-8.5); NEUTROPHILS % 66.3 % (36.0-66.0); PLATELET COUNT, AUTOMATED 302 10^3/uL (150-450); RED BLOOD COUNT 4.76 10^6/uL (4.30-6.10); WHITE BLOOD COUNT 8.1 10^3/uL (4.0-10.0)
[2022-09-27 14:43] LABS: ERYTHROCYTE SEDIMENTATION RATE 20 mm/hr (0-20)
[2022-09-27 14:47] LABS: ALBUMIN 3.3 G/DL (3.2-5.2); ALKALINE PHOSPHATASE 81 U/L (46-116); ALT/SGPT < 9 U/L (7.0-40); AST/SGOT 18 U/L (<34); BILIRUBIN,TOTAL 0.5 MG/DL (0.3-1.2); BLOOD UREA NITROGEN 7 MG/DL (9-23); CALCIUM LEVEL 9.3 MG/DL (8.5-10.1); CARBON DIOXIDE LEVEL 29 MMOL/L (20-31); CHLORIDE LEVEL 104 MMOL/L (98-107); CREATININE FOR GFR 0.94 MG/DL (0.70-1.30); GLOMERULAR FILTRATION RATE > 60.0 (>56); GLUCOSE, FASTING 93 MG/DL (60-100); POTASSIUM SERUM 3.5 MMOL/L (3.5-5.1); SODIUM LEVEL 142 MMOL/L (136-145); TOTAL PROTEIN 6.8 G/DL (5.7-8.2)
== END ==
LOC: M LAB 13:46
PROVIDERS: ATTEND Internal Medicine Rheumatology
DX: M06.09 Rheumatoid arthritis without rheumatoid factor, multiple sites (principal); M89.49 Other hypertrophic osteoarthropathy, multiple sites; G56.01 Carpal tunnel syndrome, right upper limb; Z79.899 Other long term (current) drug therapy

== ENCOUNTER → 2022-10-03 | Outpatient (REF) | payer MEDICARE ==
[2022-10-03 17:44] LABS: HEPATITIS B SURFACE ANTIGEN NEGATIVE (NEGATIVE)
[2022-10-03 18:04] LABS: HEPATITIS B CORE ANTIBODY IGM NEGATIVE (NEGATIVE)
[2022-10-03 19:55] LABS: HEPATITIS C VIRUS ABY INDEX 2.3 INDEX (<0.8)
== END ==
LOC: M SFHCRHEU 15:42
PROVIDERS: ATTEND Internal Medicine Rheumatology
DX: M06.09 Rheumatoid arthritis without rheumatoid factor, multiple sites (principal)

== ENCOUNTER → 2022-10-09 | Outpatient (CLI) | payer MEDICARE | LOC: M LAB 12:07 | PROVIDERS: ATTEND Internal Medicine Rheumatology | DX: R76.8 Other specified abnormal immunological findings in serum (principal) ==

== ENCOUNTER → 2022-12-10 | Outpatient (CLI) | payer MEDICARE | LOC: M LAB 11:44 | PROVIDERS: ATTEND Internal Medicine Rheumatology | DX: R76.8 Other specified abnormal immunological findings in serum (principal) ==

== ENCOUNTER → 2022-12-13 | Outpatient (REF) | payer MEDICARE ==
[2022-12-13 14:02] LABS: BASO # 0.1 10^3/uL (0.0-0.2); BASO % 0.7 % (0.0-1.0); EOS # 0.2 10^3/uL (0.0-0.5); HEMATOCRIT 41.2 % (42.0-52.0); HEMOGLOBIN 13.4 g/dl (13.5-17.5); LYMPH % 11.5 % (24.0-44.0); MEAN CORPUSCULAR HEMOGLOBIN 31.4 pg (27.0-33.0); MEAN CORPUSCULAR HGB CONC 32.5 g/dl (32.0-36.5); MEAN CORPUSCULAR VOLUME 96.5 fl (80.0-96.0); MONO % 10.9 % (2.0-8.0); NEUTROPHILS # 6.5 10^3/uL (1.5-8.5); NEUTROPHILS % 74.4 % (36.0-66.0); PLATELET COUNT, AUTOMATED 383 10^3/uL (150-450); RED BLOOD COUNT 4.27 10^6/uL (4.30-6.10); WHITE BLOOD COUNT 8.7 10^3/uL (4.0-10.0)
[2022-12-13 14:44] LABS: ALBUMIN 2.9 G/DL (3.2-5.2); ALKALINE PHOSPHATASE 83 U/L (46-116); ALT/SGPT < 9 U/L (7.0-40); AST/SGOT 14 U/L (<34); BILIRUBIN,TOTAL 0.4 MG/DL (0.3-1.2); BLOOD UREA NITROGEN 7 MG/DL (9-23); CALCIUM LEVEL 8.6 MG/DL (8.5-10.1); CARBON DIOXIDE LEVEL 26 MMOL/L (20-31); CHLORIDE LEVEL 105 MMOL/L (98-107); CREATININE FOR GFR 0.94 MG/DL (0.70-1.30); GLOMERULAR FILTRATION RATE > 60.0 (>56); GLUCOSE, FASTING 86 MG/DL (60-100); POTASSIUM SERUM 3.9 MMOL/L (3.5-5.1); SODIUM LEVEL 138 MMOL/L (136-145); TOTAL PROTEIN 6.3 G/DL (5.7-8.2)
[2022-12-13 14:48] LABS: ERYTHROCYTE SEDIMENTATION RATE 56 mm/hr (0-20)
== END ==
LOC: M SFHCRHEU 07:33
PROVIDERS: ATTEND Internal Medicine Rheumatology
DX: M06.09 Rheumatoid arthritis without rheumatoid factor, multiple sites (principal); Z79.899 Other long term (current) drug therapy; M89.49 Other hypertrophic osteoarthropathy, multiple sites; G56.01 Carpal tunnel syndrome, right upper limb

== ENCOUNTER 2023-02-14 15:53 | Outpatient (CLI) | payer MEDICARE ==
[~2023-02-14] VITALS: Ht 170.2 cm; Wt 74.0 kg
[~2023-02-14 15:53] MED LIST changes: +ALBUTEROL SULFATE 2.5MG/0.5ML INH NEB SOLN INH PRN; +EPINEPHrine INJ 1 MG/ML 1ML AMP IM PRN; +diphenhydrAMINE 50MG/ML VIAL IV PRN; +methylPREDNISolone 125MG 2ML VIAL IV PRN
[2023-02-14] MEDS ORDERED: diphenhydrAMINE 25MG CAP PO ONE (16:05)
[2023-02-14] MEDS ORDERED: ACETAMINOPHEN 650MG ER TAB (TYLENOL ARTHRITIS) PO ONE (16:10)
[2023-02-14] MEDS ORDERED: ABATACEPT 750 MG OVER 30 MINUTES IV ONE ×2 (16:10)
[2023-02-14 16:13] VITALS: BP 146/89; TEMP 97.4; O2SAT 98
[2023-02-14 17:07] VITALS: BP 133/81; O2SAT 98
== END 2023-02-14 17:10 | disposition home or self-care (01) ==
LOC: M INFU 15:53
PROVIDERS: ATTEND Internal Medicine Rheumatology
DX: M06.9 Rheumatoid arthritis, unspecified (principal); Z88.0 Allergy status to penicillin; Z91.040 Latex allergy status
CPT/HCPCS: 96365; J0129

== ENCOUNTER 2023-03-14 16:00 | Outpatient (CLI) | payer MEDICARE ==
[~2023-03-14] VITALS: Ht 175.3 cm; Wt 78.0 kg
[~2023-03-14 16:00] MED LIST changes: +ACETAMINOPHEN 650MG ER TAB (TYLENOL ARTHRITIS) PO ONE; +diphenhydrAMINE 50MG CAP PO ONE
[2023-03-14 16:08] VITALS: BP 128/90; TEMP 98.1; O2SAT 97
[2023-03-14] MEDS ORDERED: ABATACEPT 750 MG OVER 30 MINUTES IV ONE ×2 (16:30)
[2023-03-14 17:25] VITALS: BP 127/92; O2SAT 96
== END 2023-03-14 17:25 | disposition home or self-care (01) ==
LOC: M INFU 16:00
PROVIDERS: ATTEND Internal Medicine Rheumatology
DX: M06.9 Rheumatoid arthritis, unspecified (principal); Z88.0 Allergy status to penicillin; Z91.040 Latex allergy status; Z91.018 Allergy to other foods
CPT/HCPCS: 96365; J0129

== ENCOUNTER 2023-04-29 14:30 | Outpatient (CLI) | payer MEDICARE ==
[2023-04-29 14:30] VITALS: BP 133/81; O2SAT 96
[~2023-04-29 14:30] MED LIST changes: -ACETAMINOPHEN 650MG ER TAB (TYLENOL ARTHRITIS) PO ONE; -diphenhydrAMINE 50MG CAP PO ONE
[2023-04-29] MEDS ORDERED: diphenhydrAMINE 25MG CAP PO ONE (14:55)
[2023-04-29] MEDS ORDERED: ABATACEPT 750 MG OVER 30 MINUTES IV ONE ×2 (14:55)
[2023-04-29 14:58] VITALS: BP 133/81; TEMP 36.7; O2SAT 96
[2023-04-29] MEDS ORDERED: ACETAMINOPHEN 650MG ER TAB (TYLENOL ARTHRITIS) PO ONE (15:00)
[2023-04-29 16:14] VITALS: BP 131/87; O2SAT 97
== END 2023-04-29 16:15 ==
LOC: M INFU 14:30
PROVIDERS: ATTEND Internal Medicine Rheumatology
DX: M06.9 Rheumatoid arthritis, unspecified (principal); Z88.0 Allergy status to penicillin; Z91.040 Latex allergy status; Z91.018 Allergy to other foods
CPT/HCPCS: 96365; J0129

== ENCOUNTER 2023-05-30 15:55 | Outpatient (CLI) | payer MEDICARE ==
[~2023-05-30] VITALS: Ht 175.3 cm; Wt 75.0 kg
[~2023-05-30 15:55] MED LIST changes: +TOPI-21 PO; -TOPI-254 PO
[2023-05-30 15:59] VITALS: BP 133/75; O2SAT 98
[2023-05-30] MEDS ORDERED: ABATACEPT 750 MG OVER 30 MINUTES IV ONE ×2 (16:05)
[2023-05-30] MEDS ORDERED: ACETAMINOPHEN TAB 650MG DOSE (2X325MG) PO ONE (16:05)
[2023-05-30] MEDS ORDERED: diphenhydrAMINE 50MG CAP PO ONE (16:10)
[2023-05-30 17:03] VITALS: BP 139/81; O2SAT 99
== END 2023-05-30 17:00 | disposition home or self-care (01) ==
LOC: M INFU 15:55
PROVIDERS: ATTEND Internal Medicine Rheumatology
DX: M06.9 Rheumatoid arthritis, unspecified (principal); Z88.0 Allergy status to penicillin; Z91.040 Latex allergy status; Z91.018 Allergy to other foods
CPT/HCPCS: 96365; J0129

== ENCOUNTER → 2023-06-12 | Outpatient (REF) | payer MEDICARE ==
[~2023-06-12] MED LIST changes: -ALBUTEROL SULFATE 2.5MG/0.5ML INH NEB SOLN INH PRN; -EPINEPHrine INJ 1 MG/ML 1ML AMP IM PRN; -diphenhydrAMINE 50MG/ML VIAL IV PRN; -methylPREDNISolone 125MG 2ML VIAL IV PRN
[2023-06-12 16:09] LABS: BASO # 0.1 10^3/uL (0.0-0.2); BASO % 0.8 % (0.0-1.0); EOS # 0.2 10^3/uL (0.0-0.5); EOS % 2.1 % (0.0-3.0); HEMATOCRIT 45.9 % (42.0-52.0); HEMOGLOBIN 15.5 g/dl (13.5-17.5); LYMPH # 1.8 10^3/uL (1.5-5.0); LYMPH % 20.8 % (24.0-44.0); MEAN CORPUSCULAR HEMOGLOBIN 32.1 pg (27.0-33.0); MEAN CORPUSCULAR HGB CONC 33.8 g/dl (32.0-36.5); MONO # 0.6 10^3/uL (0.0-0.8); MONO % 6.7 % (2.0-8.0); NEUTROPHILS % 69.4 % (36.0-66.0); PLATELET COUNT, AUTOMATED 330 10^3/uL (150-450); RED BLOOD COUNT 4.83 10^6/uL (4.30-6.10); WHITE BLOOD COUNT 8.7 10^3/uL (4.0-10.0)
[2023-06-12 16:14] LABS: ERYTHROCYTE SEDIMENTATION RATE 15 mm/hr (0-20)
[2023-06-12 16:31] LABS: ALBUMIN 3.4 G/DL (3.2-5.2); ALKALINE PHOSPHATASE 83 U/L (46-116); ALT/SGPT 13 U/L (7.0-40); AST/SGOT 17 U/L (<34); BILIRUBIN,TOTAL 0.8 MG/DL (0.3-1.2); BLOOD UREA NITROGEN 8 MG/DL (9-23); CALCIUM LEVEL 9.4 MG/DL (8.5-10.1); CARBON DIOXIDE LEVEL 32 MMOL/L (20-31); CHLORIDE LEVEL 105 MMOL/L (98-107); CREATININE FOR GFR 1.12 MG/DL (0.70-1.30); GLOMERULAR FILTRATION RATE > 60.0 (>56); GLUCOSE, FASTING 86 MG/DL (60-100); POTASSIUM SERUM 4.4 MMOL/L (3.5-5.1); SODIUM LEVEL 141 MMOL/L (136-145); TOTAL PROTEIN 6.8 G/DL (5.7-8.2)
== END ==
LOC: M SFHCRHEU 14:57
PROVIDERS: ATTEND Internal Medicine Rheumatology
DX: M06.09 Rheumatoid arthritis without rheumatoid factor, multiple sites (principal); Z79.899 Other long term (current) drug therapy; M89.49 Other hypertrophic osteoarthropathy, multiple sites; G56.01 Carpal tunnel syndrome, right upper limb

== ENCOUNTER 2023-06-27 15:43 | Outpatient (CLI) | payer OTHER, MEDICAID ==
[~2023-06-27] VITALS: Ht 175.3 cm; Wt 82.7 kg
[~2023-06-27 15:43] MED LIST changes: +ACETAMINOPHEN 650MG ER TAB (TYLENOL ARTHRITIS) PO SCH; +ALBUTEROL SULFATE 2.5MG/0.5ML INH NEB SOLN INH PRN; +EPINEPHrine INJ 1 MG/ML 1ML AMP IM PRN; +diphenhydrAMINE 50MG/ML VIAL IV PRN; +methylPREDNISolone 125MG 2ML VIAL IV PRN
[2023-06-27] MEDS ORDERED: diphenhydrAMINE 50MG CAP PO ONE (16:00)
[2023-06-27 16:30] VITALS: BP 150/79; O2SAT 97
[2023-06-27] MEDS: ABATACEPT 750 MG OVER 30 MINUTES IV ONE (16:48)
[2023-06-27 17:22] VITALS: BP 129/79; O2SAT 97
== END 2023-06-27 17:22 | disposition home or self-care (01) ==
LOC: M INFU 15:43
PROVIDERS: ATTEND Internal Medicine Rheumatology
DX: M06.9 Rheumatoid arthritis, unspecified (principal); Z88.0 Allergy status to penicillin; Z91.018 Allergy to other foods; Z91.040 Latex allergy status

== ENCOUNTER → 2023-08-19 | Outpatient (CLI) | payer OTHER ==
[~2023-08-19] MED LIST changes: -ACETAMINOPHEN 650MG ER TAB (TYLENOL ARTHRITIS) PO SCH; -ALBUTEROL SULFATE 2.5MG/0.5ML INH NEB SOLN INH PRN; -EPINEPHrine INJ 1 MG/ML 1ML AMP IM PRN; -diphenhydrAMINE 50MG/ML VIAL IV PRN; -methylPREDNISolone 125MG 2ML VIAL IV PRN
[2023-08-19 17:15] LABS: BASO # 0.1 10^3/uL (0.0-0.2); EOS # 0.1 10^3/uL (0.0-0.5); HEMATOCRIT 44.6 % (42.0-52.0); HEMOGLOBIN 15.3 g/dl (13.5-17.5); LYMPH # 1.6 10^3/uL (1.5-5.0); LYMPH % 23.5 % (24.0-44.0); MEAN CORPUSCULAR HEMOGLOBIN 32.5 pg (27.0-33.0); MEAN CORPUSCULAR HGB CONC 34.3 g/dl (32.0-36.5); MEAN CORPUSCULAR VOLUME 94.7 fl (80.0-96.0); MONO # 0.6 10^3/uL (0.0-0.8); MONO % 8.3 % (2.0-8.0); NEUTROPHILS # 4.5 10^3/uL (1.5-8.5); NEUTROPHILS % 65.8 % (36.0-66.0); PLATELET COUNT, AUTOMATED 298 10^3/uL (150-450); RED BLOOD COUNT 4.71 10^6/uL (4.30-6.10); WHITE BLOOD COUNT 6.8 10^3/uL (4.0-10.0)
[2023-08-19 17:24] LABS: C REACTIVE PROTEIN QUANTITATIV < 0.40 MG/DL (<1.0); ERYTHROCYTE SEDIMENTATION RATE 7 mm/hr (0-20)
[2023-08-19 17:26] LABS: ALBUMIN 3.5 G/DL (3.2-5.2); ALKALINE PHOSPHATASE 77 U/L (46-116); ALT/SGPT 10 U/L (7.0-40); AST/SGOT 12 U/L (<34); BILIRUBIN,TOTAL 0.5 MG/DL (0.3-1.2); BLOOD UREA NITROGEN 10 MG/DL (9-23); CALCIUM LEVEL 9.4 MG/DL (8.5-10.1); CARBON DIOXIDE LEVEL 31 MMOL/L (20-31); CHLORIDE LEVEL 107 MMOL/L (98-107); CREATININE FOR GFR 1.06 MG/DL (0.70-1.30); GLOMERULAR FILTRATION RATE > 60.0 (>56); GLUCOSE, FASTING 100 MG/DL (60-100); POTASSIUM SERUM 4.2 MMOL/L (3.5-5.1); SODIUM LEVEL 142 MMOL/L (136-145); TOTAL PROTEIN 6.7 G/DL (5.7-8.2)
== END ==
LOC: M LAB 16:30
PROVIDERS: ATTEND Internal Medicine Rheumatology
DX: M06.09 Rheumatoid arthritis without rheumatoid factor, multiple sites (principal); M89.49 Other hypertrophic osteoarthropathy, multiple sites; G56.01 Carpal tunnel syndrome, right upper limb; Z79.899 Other long term (current) drug therapy

== ENCOUNTER 2023-08-22 15:30 | Outpatient (CLI) | payer OTHER ==
[~2023-08-22] VITALS: Ht 172.7 cm; Wt 85.0 kg
[2023-08-22 15:30] VITALS: BP 154/97; O2SAT 97
[~2023-08-22 15:30] MED LIST changes: +ALBUTEROL SULFATE 2.5MG/0.5ML INH NEB SOLN INH PRN; +EPINEPHrine INJ 1 MG/ML 1ML AMP IM PRN; +diphenhydrAMINE 50MG/ML VIAL IV PRN; +methylPREDNISolone 125MG 2ML VIAL IV PRN
[2023-08-22] MEDS: ACETAMINOPHEN 650MG ER TAB (TYLENOL ARTHRITIS) PO ONE (16:06)
[2023-08-22] MEDS: diphenhydrAMINE 50MG PO PRIOR TO INFUSION PO ONE (16:06)
[2023-08-22] MEDS: ABATACEPT 750 MG OVER 30 MINUTES IV ONE (16:07)
[2023-08-22 16:40] VITALS: BP 143/92; O2SAT 98
== END 2023-08-22 16:40 ==
LOC: M INFU 15:30
PROVIDERS: ATTEND Internal Medicine Rheumatology
DX: M06.09 Rheumatoid arthritis without rheumatoid factor, multiple sites (principal); Z88.0 Allergy status to penicillin; Z91.040 Latex allergy status; Z91.018 Allergy to other foods
CPT/HCPCS: 96365; J0129

== ENCOUNTER → 2023-08-22 | Outpatient (REF) | payer OTHER | LOC: M SFHCRHEU 14:56 | PROVIDERS: ATTEND Internal Medicine Rheumatology | DX: M06.09 Rheumatoid arthritis without rheumatoid factor, multiple sites (principal); Z79.899 Other long term (current) drug therapy; M89.49 Other hypertrophic osteoarthropathy, multiple sites; G56.01 Carpal tunnel syndrome, right upper limb ==

== ENCOUNTER 2023-09-19 16:15 | Outpatient (CLI) | payer OTHER ==
[~2023-09-19] VITALS: Ht 175.3 cm; Wt 81.0 kg
[2023-09-19 16:18] VITALS: BP 122/83; TEMP 98.5; O2SAT 97
[2023-09-19] MEDS: ABATACEPT 750 MG OVER 30 MINUTES IV ONE (16:41)
[2023-09-19] MEDS: ACETAMINOPHEN 650MG ER TAB (TYLENOL ARTHRITIS) PO ONE (16:55)
[2023-09-19] MEDS: diphenhydrAMINE 50MG PO PRIOR TO INFUSION PO ONE (16:55)
[2023-09-19 17:20] VITALS: BP 118/83; O2SAT 97
== END 2023-09-19 17:20 | disposition home or self-care (01) ==
LOC: M INFU 16:15
PROVIDERS: ATTEND Internal Medicine Rheumatology
DX: M06.09 Rheumatoid arthritis without rheumatoid factor, multiple sites (principal); Z88.0 Allergy status to penicillin
CPT/HCPCS: 96365; J0129

== ENCOUNTER 2023-11-04 13:05 | Outpatient (CLI) | payer OTHER, MEDICAID ==
[~2023-11-04] VITALS: Ht 167.6 cm; Wt 82.0 kg
[2023-11-04 13:00] VITALS: BP 149/84; O2SAT 98
[~2023-11-04 13:05] MED LIST changes: +ABATACEPT 750 MG OVER 30 MINUTES IV ONE; +ACETAMINOPHEN 650MG ER TAB (TYLENOL ARTHRITIS) PO ONE; +diphenhydrAMINE 50MG CAP PO ONE; +diphenhydrAMINE 50MG PO PRIOR TO INFUSION PO ONE
[2023-11-04] MEDS: ABATACEPT 750 MG OVER 30 MINUTES IV ONE (13:39)
[2023-11-04 14:12] VITALS: BP 161/84; O2SAT 96
== END 2023-11-04 14:15 ==
LOC: M INFU 13:05
PROVIDERS: ATTEND Internal Medicine Rheumatology
DX: M06.09 Rheumatoid arthritis without rheumatoid factor, multiple sites (principal); Z88.0 Allergy status to penicillin; Z91.040 Latex allergy status; Z91.018 Allergy to other foods
CPT/HCPCS: 96365; J0129

== ENCOUNTER 2023-12-17 13:49 | Outpatient (CLI) | payer MEDICARE, OTHER ==
[~2023-12-17] VITALS: Ht 175.3 cm; Wt 81.0 kg
[2023-12-17] MEDS: ACETAMINOPHEN 650MG ER TAB (TYLENOL ARTHRITIS) PO ONE (09:50)
[~2023-12-17 13:49] MED LIST changes: +NS 1,000 ML IV SCH; -diphenhydrAMINE 50MG PO PRIOR TO INFUSION PO ONE
[2023-12-17 16:05] VITALS: BP 129/76; O2SAT 97
[2023-12-17] MEDS: ABATACEPT 750 MG OVER 30 MINUTES IV ONE (16:17)
[2023-12-17] MEDS: diphenhydrAMINE 50MG CAP PO ONE (16:18)
[2023-12-17 16:38] LABS: BASO # 0.1 10^3/uL (0.0-0.2); BASO % 0.6 % (0.0-1.0); EOS # 0.1 10^3/uL (0.0-0.5); EOS % 1.7 % (0.0-3.0); HEMOGLOBIN 15.3 g/dl (13.5-17.5); LYMPH # 1.4 10^3/uL (1.5-5.0); LYMPH % 16.4 % (24.0-44.0); MEAN CORPUSCULAR HGB CONC 33.3 g/dl (32.0-36.5); MEAN CORPUSCULAR VOLUME 96.2 fl (80.0-96.0); MONO # 0.8 10^3/uL (0.0-0.8); MONO % 9.4 % (2.0-8.0); NEUTROPHILS % 71.5 % (36.0-66.0); PLATELET COUNT, AUTOMATED 293 10^3/uL (150-450); RED BLOOD COUNT 4.78 10^6/uL (4.30-6.10); WHITE BLOOD COUNT 8.3 10^3/uL (4.0-10.0)
[2023-12-17 16:48] LABS: ERYTHROCYTE SEDIMENTATION RATE 9 mm/hr (0-20)
[2023-12-17 16:55] VITALS: BP 137/80; O2SAT 99
[2023-12-17 17:08] LABS: C REACTIVE PROTEIN QUANTITATIV < 0.40 MG/DL (<1.0)
[2023-12-17 17:09] LABS: ALBUMIN 3.5 G/DL (3.2-5.2); ALKALINE PHOSPHATASE 77 U/L (46-116); ALT/SGPT 11 U/L (7.0-40); AST/SGOT 9 U/L (<34); BILIRUBIN,TOTAL 0.4 MG/DL (0.3-1.2); BLOOD UREA NITROGEN 9 MG/DL (9-23); CALCIUM LEVEL 9.5 MG/DL (8.5-10.1); CARBON DIOXIDE LEVEL 30 MMOL/L (20-31); CHLORIDE LEVEL 106 MMOL/L (98-107); CREATININE FOR GFR 0.97 MG/DL (0.70-1.30); GLOMERULAR FILTRATION RATE > 60.0 (>56); GLUCOSE, FASTING 81 MG/DL (60-100); POTASSIUM SERUM 4.2 MMOL/L (3.5-5.1); SODIUM LEVEL 140 MMOL/L (136-145); TOTAL PROTEIN 6.4 G/DL (5.7-8.2)
== END 2023-12-17 16:55 ==
LOC: M INFU 13:49
PROVIDERS: ATTEND Internal Medicine Rheumatology
DX: M06.09 Rheumatoid arthritis without rheumatoid factor, multiple sites (principal); M89.49 Other hypertrophic osteoarthropathy, multiple sites; G56.01 Carpal tunnel syndrome, right upper limb; Z79.899 Other long term (current) drug therapy; Z88.0 Allergy status to penicillin; Z91.040 Latex allergy status; Z91.018 Allergy to other foods
CPT/HCPCS: 36592; 80053; 85025; 85652; 86140; 96365; J0129

== ENCOUNTER 2024-01-21 08:00 | Outpatient (CLI) | payer MEDICARE, OTHER ==
[~2024-01-21] VITALS: Ht 177.8 cm; Wt 79.5 kg
[~2024-01-21 08:00] MED LIST changes: -NS 1,000 ML IV SCH; +diphenhydrAMINE 50MG PO PRIOR TO INFUSION PO ONE
[2024-01-21 08:05] VITALS: BP 145/90; TEMP 37; O2SAT 98
[2024-01-21] MEDS: ABATACEPT 750 MG OVER 30 MINUTES IV ONE (08:43)
[2024-01-21 09:19] VITALS: BP 138/90; O2SAT 98
== END 2024-01-21 09:22 ==
LOC: M INFU 08:00
PROVIDERS: ATTEND Internal Medicine Rheumatology
DX: M06.09 Rheumatoid arthritis without rheumatoid factor, multiple sites (principal); Z88.0 Allergy status to penicillin; Z91.040 Latex allergy status; Z91.018 Allergy to other foods
CPT/HCPCS: 96365; J0129

== ENCOUNTER 2024-02-20 14:30 | Outpatient (CLI) | payer MEDICARE, OTHER ==
[~2024-02-20] VITALS: Ht 177.8 cm; Wt 84.0 kg
[2024-02-20 14:05] VITALS: BP 124/77; O2SAT 98
[~2024-02-20 14:30] MED LIST changes: -ABATACEPT 750 MG OVER 30 MINUTES IV ONE; -ACETAMINOPHEN 650MG ER TAB (TYLENOL ARTHRITIS) PO ONE; -diphenhydrAMINE 50MG CAP PO ONE; -diphenhydrAMINE 50MG PO PRIOR TO INFUSION PO ONE
[2024-02-20] MEDS: ABATACEPT 750 MG OVER 30 MINUTES IV ONE (15:02)
[2024-02-20] MEDS: diphenhydrAMINE 50MG PO PRIOR TO INFUSION PO ONE (15:03)
[2024-02-20] MEDS: ACETAMINOPHEN 650MG ER TAB (TYLENOL ARTHRITIS) PO ONE (15:03)
[2024-02-20 15:32] VITALS: BP 123/79; O2SAT 97
== END 2024-02-20 15:35 ==
LOC: M INFU 14:30
PROVIDERS: ATTEND Internal Medicine Rheumatology
DX: M06.09 Rheumatoid arthritis without rheumatoid factor, multiple sites (principal); Z88.0 Allergy status to penicillin; Z91.018 Allergy to other foods; Z91.040 Latex allergy status
CPT/HCPCS: 96365; J0129

== ENCOUNTER 2024-03-19 14:30 | Outpatient (CLI) | payer MEDICARE, OTHER ==
[~2024-03-19] VITALS: Ht 177.8 cm; Wt 77.9 kg
[2024-03-19 14:30] VITALS: BP 126/83; O2SAT 97
[~2024-03-19 14:30] MED LIST changes: +ABATACEPT 750 MG OVER 30 MINUTES IV ONE; +ACETAMINOPHEN 650MG ER TAB (TYLENOL ARTHRITIS) PO ONE; +diphenhydrAMINE 50MG PO PRIOR TO INFUSION PO ONE
[2024-03-19] MEDS: ACETAMINOPHEN 650MG ER TAB (TYLENOL ARTHRITIS) PO ONE (15:09)
[2024-03-19] MEDS: diphenhydrAMINE 50MG PO PRIOR TO INFUSION PO ONE (15:09)
[2024-03-19] MEDS: ABATACEPT 750 MG OVER 30 MINUTES IV ONE (15:10)
[2024-03-19 15:45] VITALS: BP 137/84; O2SAT 97
== END 2024-03-19 15:50 ==
LOC: M INFU 14:30
PROVIDERS: ATTEND Internal Medicine Rheumatology
DX: M06.09 Rheumatoid arthritis without rheumatoid factor, multiple sites (principal); Z88.0 Allergy status to penicillin; Z91.040 Latex allergy status; Z91.018 Allergy to other foods
CPT/HCPCS: 96365; J0129

== ENCOUNTER → 2024-04-01 | Outpatient (CLI) | payer OTHER ==
[~2024-04-01] MED LIST changes: -ABATACEPT 750 MG OVER 30 MINUTES IV ONE; -ACETAMINOPHEN 650MG ER TAB (TYLENOL ARTHRITIS) PO ONE; -ALBUTEROL SULFATE 2.5MG/0.5ML INH NEB SOLN INH PRN; -EPINEPHrine INJ 1 MG/ML 1ML AMP IM PRN; -diphenhydrAMINE 50MG PO PRIOR TO INFUSION PO ONE; -diphenhydrAMINE 50MG/ML VIAL IV PRN; -methylPREDNISolone 125MG 2ML VIAL IV PRN
[2024-04-01 11:28] LABS: HEMATOCRIT 43.3 % (42.0-52.0); HEMOGLOBIN 14.9 g/dl (13.5-17.5); MEAN CORPUSCULAR HEMOGLOBIN 33.6 pg (27.0-33.0); MEAN CORPUSCULAR HGB CONC 34.4 g/dl (32.0-36.5); MEAN CORPUSCULAR VOLUME 97.7 fl (80.0-96.0); PLATELET COUNT, AUTOMATED 266 10^3/uL (150-450); RED BLOOD COUNT 4.43 10^6/uL (4.30-6.10); WHITE BLOOD COUNT 7.3 10^3/uL (4.0-10.0)
[2024-04-01 11:59] LABS: ALBUMIN 3.2 G/DL (3.2-5.2); ALKALINE PHOSPHATASE 74 U/L (40-129); ALT/SGPT 15 U/L (7.0-40); AST/SGOT 15 U/L (<34); BILIRUBIN,TOTAL 0.7 MG/DL (0.3-1.2); BLOOD UREA NITROGEN 9 MG/DL (9-23); CALCIUM LEVEL 9.3 MG/DL (8.5-10.1); CARBON DIOXIDE LEVEL 31 MMOL/L (20-31); CHLORIDE LEVEL 109 MMOL/L (98-107); GLOMERULAR FILTRATION RATE > 60.0 (>56); GLUCOSE, FASTING 86 MG/DL (60-100); POTASSIUM SERUM 3.9 MMOL/L (3.5-5.1); SODIUM LEVEL 143 MMOL/L (136-145); TOTAL PROTEIN 6.5 G/DL (5.7-8.2)
[2024-04-01 12:07] LABS: ERYTHROCYTE SEDIMENTATION RATE 5 mm/hr (0-20)
== END ==
LOC: M LAB 10:00
PROVIDERS: ATTEND Internal Medicine Rheumatology
DX: M06.09 Rheumatoid arthritis without rheumatoid factor, multiple sites (principal)

== ENCOUNTER 2024-04-16 13:55 | Outpatient (CLI) | payer OTHER ==
[~2024-04-16] VITALS: Ht 177.8 cm; Wt 76.6 kg
[~2024-04-16 13:55] MED LIST changes: +ALBUTEROL SULFATE 2.5MG/0.5ML INH NEB SOLN INH PRN; +EPINEPHrine INJ 1 MG/ML 1ML AMP IM PRN; +diphenhydrAMINE 50MG/ML VIAL IV PRN; +methylPREDNISolone 125MG 2ML VIAL IV PRN
[2024-04-16] MEDS ORDERED: diphenhydrAMINE 25MG CAP PO ONE (14:30)
[2024-04-16] MEDS ORDERED: ACETAMINOPHEN 650MG ER TAB (TYLENOL ARTHRITIS) PO ONE (14:30)
[2024-04-16 14:45] VITALS: BP 128/76; O2SAT 99
[2024-04-16] MEDS: ABATACEPT 750 MG OVER 30 MINUTES IV ONE (15:24)
[2024-04-16 16:00] VITALS: BP 167/84; O2SAT 99
== END 2024-04-16 16:00 ==
LOC: M INFU 13:55
PROVIDERS: ATTEND Internal Medicine Rheumatology
DX: M06.09 Rheumatoid arthritis without rheumatoid factor, multiple sites (principal); Z88.0 Allergy status to penicillin; Z91.040 Latex allergy status; Z91.018 Allergy to other foods
CPT/HCPCS: 96365; J0129

== ENCOUNTER 2024-05-22 15:44 | Outpatient (CLI) | payer OTHER, MEDICAID ==
[~2024-05-22] VITALS: Ht 177.8 cm; Wt 79.5 kg
[~2024-05-22 15:44] MED LIST changes: +ABATACEPT 750 MG OVER 30 MINUTES IV ONE; +ACETAMINOPHEN 650MG ER TAB (TYLENOL ARTHRITIS) PO ONE; +diphenhydrAMINE 50MG CAP PO ONE
[2024-05-22 16:04] VITALS: BP 157/82; O2SAT 97
[2024-05-22] MEDS: ACETAMINOPHEN 650MG ER TAB (TYLENOL ARTHRITIS) PO ONE (16:15)
[2024-05-22] MEDS: diphenhydrAMINE 50MG CAP PO ONE (16:15)
[2024-05-22] MEDS: ABATACEPT 750 MG OVER 30 MINUTES IV ONE (16:16)
[2024-05-22 16:50] VITALS: BP 135/84; O2SAT 98
== END 2024-05-22 16:50 | disposition home or self-care (01) ==
LOC: M INFU 15:44
PROVIDERS: ATTEND Internal Medicine Rheumatology
DX: M06.09 Rheumatoid arthritis without rheumatoid factor, multiple sites (principal); Z88.0 Allergy status to penicillin; Z91.040 Latex allergy status; Z91.018 Allergy to other foods
CPT/HCPCS: 96365; J0129

== ENCOUNTER 2024-06-19 14:44 | Outpatient (CLI) | payer MEDICARE, MEDICAID ==
[~2024-06-19] VITALS: Ht 177.8 cm; Wt 75.0 kg
[2024-06-19] MEDS: ACETAMINOPHEN 650MG ER TAB (TYLENOL ARTHRITIS) PO ONE (14:30)
[2024-06-19] MEDS: diphenhydrAMINE 50MG PO PRIOR TO INFUSION PO ONE (14:30)
[~2024-06-19 14:44] MED LIST changes: -ABATACEPT 750 MG OVER 30 MINUTES IV ONE; -ACETAMINOPHEN 650MG ER TAB (TYLENOL ARTHRITIS) PO ONE; -diphenhydrAMINE 50MG CAP PO ONE
[2024-06-19 14:55] VITALS: BP 136/84; O2SAT 98
[2024-06-19] MEDS: ABATACEPT 750 MG OVER 30 MINUTES IV ONE (15:17)
[2024-06-19 15:50] VITALS: BP 140/89; O2SAT 97
== END 2024-06-19 15:50 | disposition home or self-care (01) ==
LOC: M INFU 14:44
PROVIDERS: ATTEND Internal Medicine Rheumatology
DX: M06.09 Rheumatoid arthritis without rheumatoid factor, multiple sites (principal); Z88.0 Allergy status to penicillin; Z91.018 Allergy to other foods; Z91.040 Latex allergy status
CPT/HCPCS: 96365; J0129

== ENCOUNTER 2024-07-22 12:10 | Outpatient (CLI) | payer MEDICARE, MEDICAID ==
[2024-07-17] MEDS: ACETAMINOPHEN 650MG ER TAB (TYLENOL ARTHRITIS) PO ONE (12:30)
[2024-07-17] MEDS: diphenhydrAMINE 50MG CAP PO ONE (12:30)
[~2024-07-22] VITALS: Ht 177.8 cm; Wt 79.2 kg
[~2024-07-22 12:10] MED LIST changes: +ABATACEPT 750 MG OVER 30 MINUTES IV ONE; +diphenhydrAMINE 50MG CAP PO ONE
[2024-07-22 12:20] VITALS: BP 125/72; O2SAT 97
[2024-07-22] MEDS ORDERED: ACETAMINOPHEN 650MG ER TAB (TYLENOL ARTHRITIS) PO SCH (12:30)
[2024-07-22] MEDS: ABATACEPT 750 MG OVER 30 MINUTES IV ONE (13:08)
[2024-07-22 13:29] LABS: BASO % 0.9 % (0.0-1.0); EOS # 0.1 10^3/uL (0.0-0.5); EOS % 2.8 % (0.0-3.0); HEMATOCRIT 35.3 % (42.0-52.0); LYMPH # 0.9 10^3/uL (1.5-5.0); LYMPH % 21.2 % (24.0-44.0); MEAN CORPUSCULAR HEMOGLOBIN 31.9 pg (27.0-33.0); MEAN CORPUSCULAR VOLUME 93.9 fl (80.0-96.0); MONO # 0.4 10^3/uL (0.0-0.8); MONO % 9.7 % (2.0-8.0); NEUTROPHILS # 2.8 10^3/uL (1.5-8.5); NEUTROPHILS % 64.9 % (36.0-66.0); PLATELET COUNT, AUTOMATED 218 10^3/uL (150-450); RED BLOOD COUNT 3.76 10^6/uL (4.30-6.10); WHITE BLOOD COUNT 4.3 10^3/uL (4.0-10.0)
[2024-07-22 13:38] LABS: ERYTHROCYTE SEDIMENTATION RATE 3 mm/hr (0-20)
[2024-07-22 13:40] VITALS: BP 127/80; O2SAT 98
[2024-07-22 14:00] LABS: C REACTIVE PROTEIN QUANTITATIV 1.07 MG/DL (<1.0)
[2024-07-22 14:07] LABS: ALBUMIN 2.7 G/DL (3.2-5.2); ALKALINE PHOSPHATASE 69 U/L (40-129); ALT/SGPT 11 U/L (7.0-40); AST/SGOT 8 U/L (<34); BILIRUBIN,TOTAL 0.5 MG/DL (0.3-1.2); BLOOD UREA NITROGEN 9 MG/DL (9-23); CALCIUM LEVEL 7.8 MG/DL (8.5-10.1); CARBON DIOXIDE LEVEL 26 MMOL/L (20-31); CHLORIDE LEVEL 108 MMOL/L (98-107); CREATININE FOR GFR 0.83 MG/DL (0.70-1.30); GLOMERULAR FILTRATION RATE > 60.0 (>56); GLUCOSE, FASTING 84 MG/DL (60-100); POTASSIUM SERUM 3.2 MMOL/L (3.5-5.1); SODIUM LEVEL 144 MMOL/L (136-145); TOTAL PROTEIN 5.5 G/DL (5.7-8.2)
== END 2024-07-22 13:40 ==
LOC: M INFU 12:10
PROVIDERS: ATTEND Internal Medicine Rheumatology
DX: M06.9 Rheumatoid arthritis, unspecified (principal); Z79.899 Other long term (current) drug therapy; R76.8 Other specified abnormal immunological findings in serum; M89.49 Other hypertrophic osteoarthropathy, multiple sites; Z88.0 Allergy status to penicillin; Z91.040 Latex allergy status; Z91.018 Allergy to other foods
CPT/HCPCS: 36592; 80053; 85025; 85652; 86140; 96365; J0129

== ENCOUNTER 2024-08-14 14:40 | Outpatient (CLI) | payer MEDICARE, MEDICAID ==
[~2024-08-14] VITALS: Ht 177.8 cm; Wt 76.3 kg
[~2024-08-14 14:40] MED LIST changes: -ABATACEPT 750 MG OVER 30 MINUTES IV ONE; +NS (Normal Saline) 0.9% 1,000 ML IV SCH; -diphenhydrAMINE 50MG CAP PO ONE
[2024-08-14 14:42] VITALS: BP 118/83; O2SAT 97
[2024-08-14] MEDS: diphenhydrAMINE 25MG CAP PO ONE (15:13)
[2024-08-14] MEDS: ABATACEPT 750 MG OVER 30 MINUTES IV ONE (15:13)
[2024-08-14] MEDS: ACETAMINOPHEN 650MG ER TAB (TYLENOL ARTHRITIS) PO ONE (15:13)
[2024-08-14 15:43] VITALS: BP 118/83; O2SAT 98
== END 2024-08-14 15:45 | disposition home or self-care (01) ==
LOC: M INFU 14:40
PROVIDERS: ATTEND Internal Medicine Rheumatology
DX: M06.09 Rheumatoid arthritis without rheumatoid factor, multiple sites (principal); Z88.0 Allergy status to penicillin; Z91.040 Latex allergy status; Z91.018 Allergy to other foods
CPT/HCPCS: 96365; J0129

== ENCOUNTER 2024-12-03 22:04 | Emergency (ER) | payer MEDICARE, MEDICAID ==
[~2024-12-03] VITALS: Ht 175.3 cm; Wt 77.5 kg
[~2024-12-03 22:04] MED LIST changes: -ALBUTEROL SULFATE 2.5MG/0.5ML INH NEB SOLN INH PRN; -EPINEPHrine INJ 1 MG/ML 1ML AMP IM PRN; -NS (Normal Saline) 0.9% 1,000 ML IV SCH; -diphenhydrAMINE 50MG/ML VIAL IV PRN; -methylPREDNISolone 125MG 2ML VIAL IV PRN
[2024-12-03] MEDS: ONDANSETRON 4MG ORAL DISINTEGRATING TAB PO ONE (23:20)
[2024-12-04] MEDS ORDERED: HYDR-3713 PO (03:00)
[2024-12-04 03:26] VITALS: BP 127/79; TEMP 97.5; O2SAT 96
== END 2024-12-04 03:29 | disposition left against medical advice (07) ==
LOC: M ED 22:04
DX: S02.602A Fracture of unspecified part of body of left mandible, initial encounter for closed fracture (principal); S01.412A Laceration without foreign body of left cheek and temporomandibular area, initial encounter; Y04.0XXA Assault by unarmed brawl or fight, initial encounter; G43.909 Migraine, unspecified, not intractable, without status migrainosus; G40.909 Epilepsy, unspecified, not intractable, without status epilepticus; K21.9 Gastro-esophageal reflux disease without esophagitis; M26.69 Other specified disorders of temporomandibular joint; K05.6 Periodontal disease, unspecified; J01.00 Acute maxillary sinusitis, unspecified; M25.78 Osteophyte, vertebrae; M50.30 Other cervical disc degeneration, unspecified cervical region; F10.10 Alcohol abuse, uncomplicated; F17.200 Nicotine dependence, unspecified, uncomplicated; Z79.1 Long term (current) use of non-steroidal anti-inflammatories (NSAID); Z79.52 Long term (current) use of systemic steroids; Z79.899 Other long term (current) drug therapy; Z88.0 Allergy status to penicillin; Z91.040 Latex allergy status; Z91.018 Allergy to other foods; Y99.9 Unspecified external cause status; Y92.410 Unspecified street and highway as the place of occurrence of the external cause; Y93.89 Activity, other specified; Z53.9 Procedure and treatment not carried out, unspecified reason

== ENCOUNTER 2024-12-05 10:46 | Emergency (ER) | payer MEDICARE, MEDICAID ==
[~2024-12-05] VITALS: Ht 177.8 cm; Wt 74.5 kg
[2024-12-05 12:22] LABS: BASO # 0.1 10^3/uL (0.0-0.2); BASO % 0.5 % (0.0-1.0); EOS # 0.1 10^3/uL (0.0-0.5); EOS % 1.3 % (0.0-3.0); LYMPH # 1.1 10^3/uL (1.5-5.0); LYMPH % 10.3 % (24.0-44.0); MONO # 1.1 10^3/uL (0.0-0.8); MONO % 10.5 % (2.0-8.0); NEUTROPHILS # 8.0 10^3/uL (1.5-8.5); NEUTROPHILS % 77.0 % (36.0-66.0); PLATELET COUNT, AUTOMATED 307 10^3/uL (150-450)
[2024-12-05] MEDS ORDERED: ISOVUE-370 76% 100 ML VIAL As Ordered ONE (12:27)
[2024-12-05] MEDS: metroNIDAZOLE 500 MG in IV 1 EA IV ONE (14:39)
[2024-12-05] MEDS: LevoFLOXacin IV 750 MG in IV 1 EA IV ONE (15:14)
[2024-12-05 16:54] VITALS: TEMP 98.3
[2024-12-05 17:26] VITALS: BP 121/82; O2SAT 97
== END 2024-12-05 17:30 | disposition short-term general hospital (02) ==
LOC: M ED 10:46
DX: S02.652A Fracture of angle of left mandible, initial encounter for closed fracture (principal); D10.9 Benign neoplasm of pharynx, unspecified; K21.9 Gastro-esophageal reflux disease without esophagitis; G40.909 Epilepsy, unspecified, not intractable, without status epilepticus; F17.200 Nicotine dependence, unspecified, uncomplicated; F10.10 Alcohol abuse, uncomplicated; Z88.0 Allergy status to penicillin; Z91.040 Latex allergy status; Z91.018 Allergy to other foods; Z79.1 Long term (current) use of non-steroidal anti-inflammatories (NSAID); Z79.52 Long term (current) use of systemic steroids; Z79.899 Other long term (current) drug therapy; Y92.9 Unspecified place or not applicable; Y93.89 Activity, other specified; Y99.9 Unspecified external cause status
CPT/HCPCS: 70491; 80047; 85025; 96365; 96366; 96367; 99284; J1836; J1956; Q9967

== ENCOUNTER 2024-12-07 16:13 | Emergency (ER) | payer MEDICARE, MEDICAID ==
[~2024-12-07] VITALS: Ht 177.8 cm; Wt 73.6 kg
[2024-12-07] MEDS ORDERED: MELO7.5T35 (16:23)
[2024-12-08] MEDS: LIDOCAINE VISCOUS 2% SOLN 15 ML UDC SS ONE (01:16)
[2024-12-08 02:07] VITALS: BP 130/82; TEMP 97.2; O2SAT 98
== END 2024-12-08 02:08 | disposition home or self-care (01) ==
LOC: M ED 16:13
DX: R09.A2 Foreign body sensation, throat (principal); Z88.0 Allergy status to penicillin; Z91.018 Allergy to other foods; Z91.040 Latex allergy status; Z79.1 Long term (current) use of non-steroidal anti-inflammatories (NSAID); Z79.52 Long term (current) use of systemic steroids; Z79.899 Other long term (current) drug therapy

== ENCOUNTER → 2025-02-04 | Outpatient (REF) | payer MEDICARE ==
[~2025-02-04] MED LIST changes: +MELO7.5T35
[2025-02-04 18:27] LABS: BASO # 0.0 10^3/uL (0.0-0.2); BASO % 0.3 % (0.0-1.0); EOS # 0.0 10^3/uL (0.0-0.5); EOS % 0.0 % (0.0-3.0); LYMPH # 0.5 10^3/uL (1.5-5.0); LYMPH % 5.2 % (24.0-44.0); MONO # 0.3 10^3/uL (0.0-0.8); MONO % 2.8 % (2.0-8.0); NEUTROPHILS # 9.3 10^3/uL (1.5-8.5); NEUTROPHILS % 91.3 % (36.0-66.0); PLATELET COUNT, AUTOMATED 409 10^3/uL (150-450)
[2025-02-04 18:32] LABS: C REACTIVE PROTEIN QUANTITATIV 4.41 MG/DL (<1.0)
[2025-02-04 18:33] LABS: ALT/SGPT 9 U/L (7.0-40); AST/SGOT 11 U/L (<34); CALCIUM LEVEL 10.1 MG/DL (8.5-10.1); CARBON DIOXIDE LEVEL 30 MMOL/L (20-31); CHLORIDE LEVEL 103 MMOL/L (98-107); CREATININE FOR GFR 0.87 MG/DL (0.70-1.30); GLOMERULAR FILTRATION RATE > 90.0 (>56); POTASSIUM SERUM 4.0 MMOL/L (3.5-5.1); SODIUM LEVEL 142 MMOL/L (136-145)
[2025-02-04 18:40] LABS: ERYTHROCYTE SEDIMENTATION RATE 70 mm/hr (0-20)
== END ==
LOC: M SFHCRHEU 14:13
PROVIDERS: ATTEND Internal Medicine Rheumatology
DX: M06.09 Rheumatoid arthritis without rheumatoid factor, multiple sites (principal); Z79.899 Other long term (current) drug therapy; M89.49 Other hypertrophic osteoarthropathy, multiple sites; R76.8 Other specified abnormal immunological findings in serum